=== PATIENT | female | born 1965 | race Caucasian/White ===

== ENCOUNTER 2019-01-04 09:15 | Inpatient (IN) | payer OTHER ==
[~2019-01-04] VITALS: Ht 162.6 cm; Wt 148.3 kg
[2019-01-04] MEDS ORDERED: HYDROCODONE/APAP 7.5MG-325MG 1 EA TAB PO PRN (10:30)
[2019-01-04] MEDS ORDERED: ONDANSETRON HCL INJ 2MG/ML 2ML 2 MG/ML VIAL IV STA (11:33)
[2019-01-04] MEDS ORDERED: MORPHINE SULFATE INJ 4 MG/ML INJ 1ML IV STA (11:33)
[2019-01-04 11:56] LABS: BASOPHILS # (AUTO) 0.1 (0.0-0.1); BASOPHILS % 0.4 % (0.0-1.0); EOSINOPHILS # (AUTO) 0.2 (0.0-0.4); EOSINOPHILS % 1.4 % (0.0-6.0); HEMATOCRIT 40.3 % (34.2-44.1); HEMOGLOBIN 13.2 g/dL (12.0-16.0); LYMPHOCYTES # (AUTO) 3.2 (1.0-3.2); LYMPHOCYTES % 24.2 % (18.0-39.1); MEAN CORPUSCULAR HEMOGLOBIN 27.6 pg (28-32); MEAN CORPUSCULAR HGB CONC 32.8 g/dL (31-35); MEAN CORPUSCULAR VOLUME 84.1 fL (81-99); MONOCYTES # (AUTO) 0.6 (0.2-0.8); MONOCYTES % 4.8 % (4.4-11.3); NEUTROPHILS % 68.5 % (38.7-80.0); PLATELET COUNT 298 x10e3/uL (140-360); RED BLOOD COUNT 4.79 x10e6/uL (3.6-5.1); RED CELL DISTRIBUTION WIDTH 13.7 % (11.7-14.4)
[2019-01-04 12:11] LABS: ANION GAP 17.4 mmol/L (8-16); CALCIUM 10.1 mg/dL (8.4-10.2); CREATININE, SERUM 1.07 mg/dL (0.57-1.11); POTASSIUM 4.4 mmol/L (3.5-5.1)
--- NOTE | 2019-01-04 12:26 | Diagnostic Imaging Report ---
Exam: Left ankle series; 3 views History: Status post fall Comparison: None available Findings: There is diffuse soft tissue swelling. No fracture or dislocation is present. Minimal spurring of the calcaneus at the insertion of the plantar fascia is noted. Impression: Diffuse soft tissue swelling without evidence of a fracture. Signed by: Dr. Juan Mas DO on 01/04/2019 12:23 PM
--- NOTE | 2019-01-04 12:29 | Diagnostic Imaging Report ---
Exam: Left foot series; 3 views History: Status post fall Comparison: Left ankle series same date Findings: There is diffuse soft tissue swelling. No fracture or dislocation is present. Again noted is the spurring of the calcaneus at the insertion of the plantar fascia is noted. Impression: Diffuse soft tissue swelling without evidence of a fracture. Signed by: Dr. Juan Mas DO on 01/04/2019 12:25 PM
--- NOTE | 2019-01-04 12:31 | Diagnostic Imaging Report ---
Exam: Left knee series; 3 views History: Status post fall Comparison: None available Findings: Displaced medial tibial plateau fracture. CT scan may provide additional characterization of the fracture extent. No joint effusion or hemarthrosis. Impression: Displaced medial tibial plateau fracture. Signed by: Dr. Juan Mas DO on 01/04/2019 12:28 PM
[2019-01-04] MEDS ORDERED: SODIUM CHLORIDE FLUSH 10 ML SYR INJ PRN (13:30)
--- OUTSIDE RECORDS SUMMARY | 2019-01-04 13:49 | XMS REPORT ---
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 Allergies, Adverse Reactions, Alerts This patient has no known allergies or adverse reactions. Medications This patient has no known medications. Results Test Description Test Time Test Comments Text Results Atomic Results Result Comments KNEE LEFT THREE VIEWS 2019-01-04 12:26:00 [place] [address] Patient Name: AYAD KERR MR #: [id number] : 1965 Age/Sex: 53/F Req #: [id number] Adm Physician: Ordered by: RASHIDA RODRIGUEZ NATURAL G[employer] PLANT TECHNICIAN Report #: [id number] Location: ER Room/Bed: Procedure: [id number] DX/KNEE LEFT THREE VIEWS Exam Date: 01/04/19 Exam Time: 1017 REPORT STATUS: Signed Exam: Left knee series; 3 views History: Status post fall Comparison: None available Findings: Displaced medial tibial plateau fracture. CT scan may provide additional characterization of the fracture extent. No joint effusion or hemarthrosis. Impression: Displaced medial tibial plateau fracture. Signed by: Dr. Domonique Mas DO on 01/04/2019 12:28 PM Dictated By: DOMONIQUE MAS DO 1228 Transcribed By: TOMMIE on 01/04/198 COPY TO: RASHIDA RODRIGUEZ NATURAL G[employer] PLANT TECHNICIAN FOOT LEFT COMPLETE 2019-01-04 12:24:00 [facility] [address] [place], [place] [address] Patient Name: AYAD KERR MR #: [id number] : 1965 Age/Sex: 53/F Req #: [id number] Adm Physician: Ordered by: RASHIDA RODRIGUEZ NATURAL G[employer] PLANT TECHNICIAN Report #: [id number] Location: ER Room/Bed: Procedure: [id number] DX/FOOT LEFT COMPLETE Exam Date: 01/04/19 Exam Time: 1017 REPORT STATUS: Signed Exam: Left foot series; 3 views History: Status post fall Comparison: Left ankle series same date Findings: There is diffuse soft tissue swelling. No fracture or dislocation is present. Again noted is the spurring of the calcaneus at the insertion of the plantar fascia is noted. Impression: Diffuse soft tissue swelling without evidence of a fracture. Signed by: Dr. Domonique Mas DO on 01/04/2019 12:25 PM Dictated By: DOMONIQUE MAS DO Transcribed By: TOMMIE on 01/04/195 COPY TO: RASHIDA RODRIGUEZ NATURAL GAS PLANT TECHNICIAN ANKLE 3+ VIEWS LEFT 2019-01-04 12:22:[address] [address] Patient Name: AYAD KERR MR #: [id number] : 1965 Age/Sex: 53/F Req #: [id number] Adm Physician: Ordered by: RASHIDA RODRIGUEZ NATURAL G[employer] PLANT TECHNICIAN Report #: [id number] Location: Room/Bed: Procedure: [id number] DX/ANKLE 3+ VIEWS LEFT Exam Date: 01/04/19 Exam Time: 1017 REPORT STATUS: Signed Exam: Left ankle series; 3 views History: Status post fall Comparison: None available Findings: There is diffuse soft tissue swelling. No fracture or dislocation is present. Minimal spurring of the calcaneus at the insertion of the plantar fascia is noted. Impression: Diffuse soft tissue swelling without evidence of a fracture. Signed by: Dr. Domonique Mas DO on 01/04/2019 12:23 PM Dictated By: DOMONIQUE MAS DO 1223 Transcribed By: TOMMIE on 01/04/19 1223 COPY TO: RASHIDA RODRIGUEZ NP
--- NOTE | 2019-01-04 13:51 | Diagnostic Imaging Report ---
CT scan of the LEFT KNEE, WITHOUT injected contrast. TECHNIQUE: Standard departmental protocols were used. Sagittal and coronal reformatted images were obtained. HISTORY: Fall, pain, fracture COMPARISON: Left knee radiographs January 04, 2019. FINDINGS: Bone: Comminuted intra-articular fracture involving both the medial and lateral tibial plateaus. Maximal depression and anterior displacement of fracture fragments is at the anterior aspect of the medial tibial plateau. Maximal depression of the articular surface is approximately 6 mm (sagittal image 40). A 1.4 cm curvilinear avulsion from the fibular head with maximal distraction of 6 mm. Joint: Small nonspecific effusion. Soft Tissues: Moderate nonspecific soft tissue edema. IMPRESSION: 1. Acute, comminuted, intra-articular, impacted fracture involving the medial tibial plateau greater than the lateral tibial plateau. 2. Small acute avulsion from the head of the fibula. Signed by: Dr. Reese Doan D.O., M.M.M. on 01/04/2019 1:47 PM
[2019-01-04] MEDS ORDERED: MORPHINE SULFATE 2 MG/ML SYR 1ML IV PRN (14:00)
[2019-01-04 16:00] VITALS: BP 122/60
[2019-01-04 16:41] VITALS: BP 172/83
[2019-01-04] MEDS ORDERED: LEVOTHYROXINE200 MCG PO (16:42)
[2019-01-04] MEDS ORDERED: PIOGLITAZONE HC45 MG PO (16:42)
[2019-01-04] MEDS ORDERED: CITALOPRAM HBR20 MG PO (16:42)
[2019-01-04] MEDS ORDERED: LISINOPRIL10 MG PO (16:42)
[2019-01-04] MEDS ORDERED: LIOTHYRONINE SO5 MCG PO (16:42)
[2019-01-04] MEDS ORDERED: LOVASTATIN40 MG (16:42)
[2019-01-04] MEDS ORDERED: LANTUS 3ML100 UNITS/ (16:42)
[2019-01-04] MEDS: FAMOTIDINE 20 MG/2 ML VIAL IV SCH (18:02)
[2019-01-04] MEDS: MORPHINE SULFATE INJ 4 MG/ML INJ 1ML IV PRN ×2 (18:46→22:58)
[2019-01-04] MEDS ORDERED: ACETAMINOPHEN 325 MG TAB PO PRN (19:45)
[2019-01-04] MEDS ORDERED: DEXTROSE 50% SYRINGE 50 ML IV PRN (19:45)
[2019-01-04 20:00] VITALS: BP 124/78
[2019-01-04] MEDS ORDERED: FLUCONAZOLE100 MG PO (20:39)
[2019-01-04] MEDS ORDERED: VENTOLIN HFA18 GM (20:39)
[2019-01-04] MEDS ORDERED: GABAPENTIN300 MG PO (20:39)
[2019-01-04 20:51] VITALS: BP 124/78
[2019-01-04] MEDS ORDERED: INSULIN GLARGINE 100 UNITS/ML VIAL SQ SCH (21:00)
[2019-01-04] MEDS: SIMVASTATIN 40 MG TAB PO SCH (21:00)
[2019-01-04] MEDS: ENOXAPARIN SOD INJ 40 MG/0.4 ML SYR SC SCH (21:00)
[2019-01-04] MEDS: INSULIN REGULAR, HUMAN 100 UNIT/1 ML 3ML VIAL SQ SCH (21:00)
[2019-01-04] MEDS: GABAPENTIN 300 MG CAP PO SCH (21:00)
[2019-01-05] VITALS (8 sets, daily range): BP systolic 116–138; BP diastolic 63–94
--- NOTE | 2019-01-05 02:42 | Consultation ---
DATE OF CONSULTATION: 01/04/2019 CHIEF COMPLAINT: Left knee pain. HISTORY OF PRESENT ILLNESS: This patient is a 53-year-old female with a significant history of uncontrolled insulin-dependent diabetes mellitus and morbid obesity. She suffered a fall today. She states that she tripped and fell. She states she had instant pain in the left knee. She states she was unable to get up and bear weight. She was brought into the emergency room, where she was noted to have a left tibial plateau fracture. The patient states that she lives with her twin daughter and son. 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 PAST MEDICAL HISTORY: Insulin-dependent diabetes mellitus, hypertension, hyperthyroidism, diabetic peripheral neuropathy in both feet, and morbid obesity. SOCIAL HISTORY: The patient denies smoking or drinking. ALLERGIES: NO KNOWN DRUG ALLERGIES. MEDICATIONS: See MAR. PHYSICAL EXAMINATION: In general, this is a morbidly obese female with a BMI over 56. She is resting comfortably in bed. She is in no apparent distress. She is awake, alert, and oriented appropriately. Gross inspection of her left lower extremity shows her to be in a knee immobilizer. There is perhaps some swelling around the left knee, but swelling is difficult to assess given her body habitus. I did not attempt range of motion or test stability in the knee. She has diminished sensation in the foot. Pedal pulses palpable. Distal motor exam at the ankle is intact. IMAGING: X-rays of the left knee were obtained and show a type V Schatzker tibial plateau fracture. CT scan was also obtained and shows the same thing with depression in the medial tibial plateau. LABORATORY DATA: Current blood glucose was 379. ASSESSMENT AND PLAN: This is a 53-year-old female with a left tibial plateau fracture. She is morbidly obese with a BMI of 56. She has uncontrolled insulin-dependent diabetes mellitus. Her most recent blood sugar was 379. The findings were discussed with the patient. The severity of the fracture was discussed. The increased difficulty and treating the fracture given her multiple comorbidities including morbid obesity and uncontrolled insulin-dependent diabetes mellitus was discussed at length. We have recommended open reduction and internal fixation of the left proximal tibia. The increased risks for delayed wound healing, and potential infection due to her diabetes and obesity were stressed. I have recommended that she be medically optimized prior to proceeding with the surgery. She likely needs to be placed on an insulin sliding scale and her sugars need to be well controlled. I will place her on Lovenox 40 mg twice a day before thrombo prophylaxis. In the meantime, we will plan on an open reduction internal fixation in the near future, pending medical optimization. Thank you for the consultation. Dictated by Marc Rendon PA-C MD TAYO Wong/FIDELIA /[id number]
[2019-01-05 05:15] LABS: BASOPHILS # (AUTO) 0.1 (0.0-0.1); BASOPHILS % 0.4 % (0.0-1.0); EOSINOPHILS # (AUTO) 0.1 (0.0-0.4); EOSINOPHILS % 0.5 % (0.0-6.0); HEMATOCRIT 37.4 % (34.2-44.1); HEMOGLOBIN 11.7 g/dL (12.0-16.0); LYMPHOCYTES # (AUTO) 1.4 (1.0-3.2); LYMPHOCYTES % 9.7 % (18.0-39.1); MEAN CORPUSCULAR HGB CONC 31.3 g/dL (31-35); MEAN CORPUSCULAR VOLUME 86.2 fL (81-99); MONOCYTES # (AUTO) 1.1 (0.2-0.8); MONOCYTES % 7.6 % (4.4-11.3); NEUTROPHILS # (AUTO) 11.8 (2.1-6.9); NEUTROPHILS % 81.3 % (38.7-80.0); PLATELET COUNT 256 x10e3/uL (140-360); RED BLOOD COUNT 4.34 x10e6/uL (3.6-5.1)
[2019-01-05 05:26] LABS: INR 1.02; PROTHROMBIN TIME 13.9 seconds (11.9-14.5)
[2019-01-05 05:38] LABS: ALBUMIN 3.1 g/dL (3.5-5.0); ALBUMIN/GLOBULIN RATIO 0.8 (0.8-2.0); ANION GAP 12.6 mmol/L (8-16); CALCIUM 9.7 mg/dL (8.4-10.2); CREATININE, SERUM 1.27 mg/dL (0.57-1.11); POTASSIUM 4.6 mmol/L (3.5-5.1)
[2019-01-05] MEDS: MORPHINE SULFATE INJ 4 MG/ML INJ 1ML IV PRN ×4 (05:55→22:40)
[2019-01-05] MEDS: LEVOTHYROXINE SODIUM 100 MCG TAB PO SCH (05:55)
[2019-01-05] MEDS: LIOTHYRONINE SODIUM 5 MCG TAB PO SCH (05:55)
[2019-01-05] MEDS ORDERED: NON-FORMULARY MEDICATION (Levothyroxine Sodium 200 MCG) PO SCH (06:00)
--- NOTE | 2019-01-05 07:05 | NUR ---
Received patient mid fowlers position, side rails upx2, call light within reach. AAOX4 to time, person, place, situation. Respirations even and unlabored. Immobilizer noted to left lower extremity.Will continue to monitor.
[2019-01-05] MEDS ORDERED: KCL 20MEQ/.9 SOD CHL 1,000 ML IV ONE (07:15)
[2019-01-05 07:35] LABS: CHOL/HDL RATIO 3.7 (3.0-3.6)
[2019-01-05 07:56] LABS: FREE THYROXINE INDEX 1.7652 (1.4-3.8); THYROID STIMULATING HORMONE 5.157 uIU/mL (0.350-4.940)
--- NOTE | 2019-01-05 07:58 | History and Physical ---
HISTORY: The patient is a 53-year-old lady, who has fell on the knee, and had sustained a tibial plateau fracture. The patient has been evaluated by Orthopedics and proposed surgery within 2 to 3 days after medical management has been maximized. PAST MEDICAL HISTORY: History of asthma, history of depression, history of uncontrolled diabetes mellitus, history of hypothyroidism, history of hypertension, history of hyperlipidemia, history of morbid obesity, history of obesity hypoventilation syndrome. FAMILY HISTORY: Includes history of hypertension, history of coronary artery disease, history of arthritis and history of alcohol abuse in father and myocardial infarction in father too. SOCIAL HISTORY: No EtOH. No IV drug abuse. ALLERGIES: NO DRUG ALLERGIES NOTED. REVIEW OF SYSTEMS: Negative for chest pain. No shortness of breath at rest, on exertion shortness of breath present. No nausea, vomiting, or diarrhea. No constipation. No rectal bleeding. No hematochezia. No hematemesis. Positive for pain in the left knee after the fall. The patient also had an avulsion of her nail in the right lower extremity. MEDICATIONS: The patient takes levothyroxine, liothyronine, gabapentin 300 mg 3 times a day. She takes insulin glargine 50 units q.12 hours, simvastatin 40 mg, pioglitazone 50 mg a day, lisinopril 40 mg daily, citalopram 40 mg daily. PHYSICAL EXAMINATION: GENERAL: The patient is alert and oriented x3. Pain is controlled with morphine sulfate at this time. VITAL SIGNS: Temperature 97.2, pulse is 110, respirations of 20, blood pressure is 124/76, pulse oximetry of 91% on room air. HEENT: Normocephalic, atraumatic. The patient is morbidly obese. NECK: Large. LUNGS: Decreased air entry into all bobo. Positive for some crackles in lower bases. ABDOMEN: Nontender, nondistended. EXTREMITIES: Left knee in a brace, tender to palpation. Left lower extremity with decreased pulses present and also avulsion of the nail on the right great toe. Positive for hammertoe too. Decreased sensation in lower extremities. NEUROLOGIC: Otherwise, nonfocal. LABORATORY [place]: [place] [address], hemoglobin of 13.2, hematocrit of 40.3, neutrophil count was 9. Chemistry; sodium of 133, potassium 4.4, BUN of 16, and creatinine of 1.07, estimated GFR is 54. The patient's coag's were normal. IMAGING DATA: The patient's knee CT showed acute comminuted intra-articular impacted fracture involving the medial tibial plateau, small acute avulsion at the head of the fibula. The patient's ankle x-rays shows diffuse soft tissue swelling without evidence of fracture. Foot x-ray shows diffuse soft tissue swelling without evidence of fracture either. ASSESSMENT: 1. Tibial plateau fracture. A consult with Dr. Hastings has been done. The patient is scheduled for surgery in 2 to 3 days after medical management has been optimized. 2. Diabetes mellitus, uncontrolled. The patient will get a hemoglobin A1c today. Also cardiac consult for cardiac clearance. Echocardiogram will be ordered and also lipid panel will be ordered. 3. Hyperlipidemia. Continue with antihyperlipidemic agents. 4. Morbid obesity. She will probably need O2 and BiPAP after surgery. We will continue to monitor the patient. Lovenox for DVT prophylaxis has been instituted and CBC, CMP will be followed on a regular basis. Further recommendation and clinical course, we will continue to monitor the patient. Possible planning for surgery on Tuesday and we will keep the patient in-house until medical therapy has been optimized. Insulin sliding scale medium dose has been instituted for diabetes mellitus. For further information, look in the chart and the patient will also have a consult with Dr. Park, Cardiology. MD ZAY Bennett/MODL /[id number]
[2019-01-05] MEDS ORDERED: LISINOPRIL 10 MG TAB PO SCH (09:00)
[2019-01-05] MEDS ORDERED: PIOGLITAZONE HCL 45 MG TAB PO SCH (09:00)
[2019-01-05] MEDS ORDERED: LIOTHYRONINE SODIUM 5 MCG TAB PO SCH (09:00)
[2019-01-05] MEDS ORDERED: NON-FORMULARY MEDICATION (Insulin Glargine (Lantus 3ML Pen) 50 UNITS) SQ SCH (09:00)
[2019-01-05] MEDS ORDERED: SIMVASTATIN 20 MG TAB PO SCH (09:00)
[2019-01-05] MEDS: PIOGLITAZONE HCL 15 MG TAB PO SCH (09:44)
[2019-01-05] MEDS: FAMOTIDINE 20 MG/2 ML VIAL IV SCH ×2 (09:44→17:15)
[2019-01-05] MEDS: LISINOPRIL 20 MG TAB PO SCH (09:44)
[2019-01-05] MEDS: CITALOPRAM HYDROBROMIDE 20 MG TAB PO SCH (09:44)
[2019-01-05] MEDS: ENOXAPARIN SOD INJ 40 MG/0.4 ML SYR SC SCH ×2 (09:45→21:11)
[2019-01-05] MEDS: INSULIN GLARGINE 100 UNITS/ML VIAL SQ SCH ×2 (09:45→21:11)
[2019-01-05] MEDS: INSULIN REGULAR, HUMAN 100 UNIT/1 ML 3ML VIAL SQ SCH ×4 (09:46→21:00)
--- NOTE | 2019-01-05 15:25 | Consultation ---
DATE OF CONSULTATION: CHIEF COMPLAINT: The patient is a 53-year-old with tibial plateau fracture. HISTORY OF PRESENT ILLNESS: The patient is a 53-year-old, who sustained a left tibial plateau fracture after slipping and falling. Cardiology consultation has been requested for clearance. The patient has had no chest pain, no shortness of breath, and no syncope. PAST MEDICAL HISTORY: Significant for: 1. Diabetes mellitus. 2. Hypertension. 3. Hyperlipidemia. MEDICATIONS: At home, include Synthroid, gabapentin, insulin, simvastatin, and lisinopril. SOCIAL HISTORY: The patient does not drink or does not smoke. FAMILY HISTORY: There is no known family history of coronary artery disease. PHYSICAL EXAMINATION: GENERAL: The patient is a well-developed, well-nourished female in no distress. VITAL SIGNS: Included temperature 97.2, pulse was 106, and blood pressure was 116/80. HEAD, EYES, EARS, NOSE, THROAT, AND NOSE: The patient's cranium was normocephalic and atraumatic. Extraocular muscles were intact. Sclerae are anicteric. Pupils are equal, round, and reactive to light. CHEST: Clear to auscultation and percussion. CARDIOVASCULAR: Demonstrated normal S1, S2 with a short 2/6 systolic murmur. ABDOMINAL: Demonstrated good bowel sounds. No tenderness and no masses. EXTREMITIES: 1+ edema bilaterally. NEUROLOGIC: The patient was alert and oriented. Cranial nerves II through XII are intact. Motor strength was intact in all limbs. RADIOGRAPHIC DATA: The patient's EKG demonstrated normal sinus rhythm with some nonspecific ST-T wave changes. IMPRESSION AND PLAN: The patient is a 53-year-old with a history of hypertension. The patient's cardiac status is stable with no shortness of breath and no chest pain. The patient is cleared for surgery from a cardiac standpoint. Gt Park MD DSH/MODL /[id number] cc: MD Gt Bennett MD
--- NOTE | 2019-01-05 19:10 | NUR ---
Bedside report given to oncoming nurse. Resting in bed, side rails upx2, call light within reach. No s/s of acute distress noted.
--- NOTE | 2019-01-05 19:26 | NUR ---
Patient received asleep in bed. Arousable to tactile stimuli. No signs of pain or respiratory distress noted. Fall precautions implemented. Call light within reach.
[2019-01-05] MEDS: SIMVASTATIN 40 MG TAB PO SCH (21:11)
[2019-01-05] MEDS: GABAPENTIN 300 MG CAP PO SCH (21:11)
[2019-01-06] VITALS (8 sets, daily range): BP systolic 110–142; BP diastolic 62–91
[2019-01-06] MEDS: LEVOTHYROXINE SODIUM 100 MCG TAB PO SCH (05:28)
[2019-01-06] MEDS: LIOTHYRONINE SODIUM 5 MCG TAB PO SCH (05:28)
[2019-01-06 05:42] LABS: BASOPHILS # (AUTO) 0.1 (0.0-0.1); BASOPHILS % 0.3 % (0.0-1.0); EOSINOPHILS # (AUTO) 0.1 (0.0-0.4); EOSINOPHILS % 0.4 % (0.0-6.0); HEMATOCRIT 36.6 % (34.2-44.1); HEMOGLOBIN 11.9 g/dL (12.0-16.0); LYMPHOCYTES # (AUTO) 1.6 (1.0-3.2); LYMPHOCYTES % 8.2 % (18.0-39.1); MEAN CORPUSCULAR HGB CONC 32.5 g/dL (31-35); MEAN CORPUSCULAR VOLUME 86.1 fL (81-99); MONOCYTES # (AUTO) 1.8 (0.2-0.8); MONOCYTES % 9.3 % (4.4-11.3); NEUTROPHILS # (AUTO) 15.5 (2.1-6.9); PLATELET COUNT 238 x10e3/uL (140-360); RED BLOOD COUNT 4.25 x10e6/uL (3.6-5.1)
[2019-01-06 05:52] LABS: ANION GAP 14.5 mmol/L (8-16); CALCIUM 10.2 mg/dL (8.4-10.2); CREATININE, SERUM 1.25 mg/dL (0.57-1.11); POTASSIUM 4.5 mmol/L (3.5-5.1)
--- NOTE | 2019-01-06 07:00 | NUR ---
Patient resting comfortably. Shift report given to oncoming nurse.
--- NOTE | 2019-01-06 07:05 | NUR ---
pt asleep resp even and unlabored at this time, pt easily aroused, pt able to make needs known, call light in reach will cont to monitor.
[2019-01-06] MEDS: INSULIN REGULAR, HUMAN 100 UNIT/1 ML 3ML VIAL SQ SCH ×4 (07:30→21:00)
[2019-01-06] MEDS: INSULIN GLARGINE 100 UNITS/ML VIAL SQ SCH ×2 (09:00→21:00)
[2019-01-06] MEDS: ENOXAPARIN SOD INJ 40 MG/0.4 ML SYR SC SCH ×2 (09:02→21:25)
[2019-01-06] MEDS: PIOGLITAZONE HCL 15 MG TAB PO SCH (09:02)
[2019-01-06] MEDS: FAMOTIDINE 20 MG/2 ML VIAL IV SCH ×2 (09:02→16:27)
[2019-01-06] MEDS: CITALOPRAM HYDROBROMIDE 20 MG TAB PO SCH (09:02)
[2019-01-06] MEDS: LISINOPRIL 20 MG TAB PO SCH (09:03)
[2019-01-06] MEDS: HYDROCODONE/APAP 7.5MG-325MG 1 EA TAB PO PRN ×2 (09:51→16:45)
--- NOTE | 2019-01-06 12:20 | NUR ---
pt worked with PT.
--- NOTE | 2019-01-06 13:50 | NUR ---
PT worked with pt
[2019-01-06] MEDS: MORPHINE SULFATE INJ 4 MG/ML INJ 1ML IV PRN (18:07)
--- NOTE | 2019-01-06 19:28 | NUR ---
report given to oncoming nurse, for continued care.
--- NOTE | 2019-01-06 19:32 | NUR ---
Patient asleep in bed in high hauser position. Arousable to tactile stimuli. No signs of pain or discomfort. Respirations even and non-labored. Bed locked and in lowest position. Bed rails up x 2. Call light within reach.
[2019-01-06] MEDS: SIMVASTATIN 40 MG TAB PO SCH (21:25)
[2019-01-06] MEDS: GABAPENTIN 300 MG CAP PO SCH (21:25)
[2019-01-07] VITALS (7 sets, daily range): BP systolic 121–164; BP diastolic 65–86
[2019-01-07] MEDS: MORPHINE SULFATE INJ 4 MG/ML INJ 1ML IV PRN ×2 (05:37→23:09)
[2019-01-07] MEDS: LIOTHYRONINE SODIUM 5 MCG TAB PO SCH (06:40)
[2019-01-07] MEDS: LEVOTHYROXINE SODIUM 100 MCG TAB PO SCH (06:40)
--- NOTE | 2019-01-07 07:11 | NUR ---
pt asleep upon rounds resp even and unlabored at this time,pt has no distress noted, pt aroused to name and touch, call light in reach,
--- NOTE | 2019-01-07 07:23 | NUR ---
Walking rounds done. Shift report given to oncoming nurse about patient status.
[2019-01-07] MEDS: INSULIN REGULAR, HUMAN 100 UNIT/1 ML 3ML VIAL SQ SCH ×4 (07:30→21:00)
[2019-01-07] MEDS: INSULIN GLARGINE 100 UNITS/ML VIAL SQ SCH ×2 (09:00→21:00)
[2019-01-07] MEDS: CITALOPRAM HYDROBROMIDE 20 MG TAB PO SCH (09:33)
[2019-01-07] MEDS: FAMOTIDINE 20 MG/2 ML VIAL IV SCH ×2 (09:33→16:43)
[2019-01-07] MEDS: ENOXAPARIN SOD INJ 40 MG/0.4 ML SYR SC SCH ×2 (09:33→21:10)
[2019-01-07] MEDS: PIOGLITAZONE HCL 15 MG TAB PO SCH (09:33)
[2019-01-07] MEDS: LISINOPRIL 20 MG TAB PO SCH (09:34)
--- NOTE | 2019-01-07 19:22 | NUR ---
Patient received awake in bed. AAO x 3. No complaints of pain. Respirations even and non-labored. Call light within reach.
[2019-01-07] MEDS: SIMVASTATIN 40 MG TAB PO SCH (21:10)
[2019-01-07] MEDS: GABAPENTIN 300 MG CAP PO SCH (21:10)
--- NOTE | 2019-01-07 22:55 | NUR ---
Patient given a bed bath . Redness and tear noted to right sacrum . Allevyn foam applied. Patient repositioned into a more comfortable position.
[2019-01-08] VITALS (8 sets, daily range): BP systolic 120–164; BP diastolic 60–94
--- NOTE | 2019-01-08 00:54 | NUR ---
Ziyad Jon called at . bariatric bed with air mattress ordered. spoke with nader and confirmation #[id number].
--- NOTE | 2019-01-08 03:30 | NUR ---
Patient transferred onto "Specialty" bed" with low air mattress.
[2019-01-08] MEDS: HYDROCODONE/APAP 7.5MG-325MG 1 EA TAB PO PRN ×3 (04:04→19:27)
[2019-01-08] MEDS: LIOTHYRONINE SODIUM 5 MCG TAB PO SCH (05:21)
[2019-01-08] MEDS: LEVOTHYROXINE SODIUM 100 MCG TAB PO SCH (05:21)
--- NOTE | 2019-01-08 06:40 | NUR ---
Shift report given to oncoming nurse.
--- NOTE | 2019-01-08 07:03 | NUR ---
pt alert resp even and unlabored at this time no distress, noted pt in ordered big bed, no distress noted, no c/o pain at this time. call light in reach.
[2019-01-08] MEDS: LISINOPRIL 20 MG TAB PO SCH (08:35)
[2019-01-08] MEDS: FAMOTIDINE 20 MG/2 ML VIAL IV SCH ×2 (08:35→17:01)
[2019-01-08] MEDS: CITALOPRAM HYDROBROMIDE 20 MG TAB PO SCH (08:35)
[2019-01-08] MEDS: PIOGLITAZONE HCL 15 MG TAB PO SCH (08:35)
[2019-01-08] MEDS: ENOXAPARIN SOD INJ 40 MG/0.4 ML SYR SC SCH (08:35)
[2019-01-08] MEDS: INSULIN GLARGINE 100 UNITS/ML VIAL SQ SCH ×2 (09:00→21:30)
[2019-01-08] MEDS: INSULIN REGULAR, HUMAN 100 UNIT/1 ML 3ML VIAL SQ SCH ×4 (09:18→21:30)
[2019-01-08] MEDS ORDERED: CEFAZOLIN SOD 2 GM in SODIUM CHLORIDE 0.9% 100 ML 100 ML IV SCH (11:00)
[2019-01-08] MEDS: CEFAZOLIN SOD 2 GM/D5W 50ML 50 ML IV SCH ×2 (12:00→21:30)
--- NOTE | 2019-01-08 12:03 | NUR ---
pt worked with PT, tolerated well.
[2019-01-08] MEDS ORDERED: SODIUM CHLORIDE 0.9% 250ML 250 ML ONE (15:40)
[2019-01-08] MEDS: MORPHINE SULFATE INJ 4 MG/ML INJ 1ML IV PRN (16:47)
--- NOTE | 2019-01-08 18:00 | NUR ---
pt signed consent for procedure .
--- NOTE | 2019-01-08 19:28 | NUR ---
report given to oncoming nurse, for continued care.
[2019-01-08] MEDS: SIMVASTATIN 40 MG TAB PO SCH (21:30)
[2019-01-08] MEDS: GABAPENTIN 300 MG CAP PO SCH (21:30)
[2019-01-09] VITALS (9 sets, daily range): BP systolic 114–158; BP diastolic 66–87
[2019-01-09] MEDS: HYDROCODONE/APAP 7.5MG-325MG 1 EA TAB PO PRN (00:14)
--- NOTE | 2019-01-09 04:00 | NUR ---
UPON MAKING BEDSIDE ROUNDS, PATIENT IS RELAXING EYES CLOSED, NO DISTRESS NOTED, GIVEN 0400 ANTIBIOTIC. PATIENT STATES THAT HER PAIN IS TOLERABLE AND CAN REST MORE COMFORTABLE, BED IN LOW POSITION, CALL LIGHT WITHIN REACH, WILL CONTINUE TO MONITOR.
[2019-01-09] MEDS: CEFAZOLIN SOD 2 GM/D5W 50ML 50 ML IV SCH (04:04)
[2019-01-09] MEDS: LIOTHYRONINE SODIUM 5 MCG TAB PO SCH (05:47)
[2019-01-09] MEDS: LEVOTHYROXINE SODIUM 100 MCG TAB PO SCH (05:47)
[2019-01-09] MEDS ORDERED: METOPROLOL TARTRATE INJ 1 MG/ML VIAL IV ONE (06:45)
--- NOTE | 2019-01-09 07:23 | NUR ---
REPORT GIVEN TO ONGOING NURSE. PATIENT IS RESTING COMFORTABLY
[2019-01-09] MEDS: INSULIN REGULAR, HUMAN 100 UNIT/1 ML 3ML VIAL SQ SCH ×4 (07:30→20:12)
--- NOTE | 2019-01-09 07:46 | Progress Note ---
DATE: SUBJECTIVE: This is a 53-year-old female with the tibial fracture site scheduled for surgery today. The patient is currently asymptomatic. Does complain of shortness of breath, which is baseline for her. The patient is currently on an insulin schedule and Lovenox has been on hold. The patient is on her blood pressure medicine, lisinopril, and also on morphine for pain control. OBJECTIVE: VITAL SIGNS: Temperature is 96.7, pulse of 94, respirations of 20, blood pressure is 137/72, and pulse oximeter of 93%. HEENT: Normocephalic, atraumatic. Pupils are reactive to light and accommodation. The patient is morbidly obese with a BMI of 50 plus. CVS: S1-S2 distant and slightly tachycardic. ABDOMEN: Nontender, nondistended. EXTREMITIES: No clubbing. No cyanosis. Positive for edema. Positive for tenderness in the knee and also positive for hammertoes bilaterally. LABORATORY VALUES: From , we have white count of 19,000, hemoglobin of 11.9, neutrophil count is 81. Coags were normal. Chemistries show sodium of 135 to 181. ASSESSMENT: 1. Left knee tibial plateau fracture. The patient is on-call for surgery today. 2. Morbid obesity. The patient is high risk for surgery. 3. Hypertension with possible sleep apnea. 4. Hypoxia, might need ICU admission after surgery. We will continue to monitor the patient. Ortho is on consult and also cardiology consult is on board. PLAN: Schedule for surgery today. We will go ahead and give her metoprolol 2.5 mg IV to control her heart rate and also check a CBC prior to surgery with a history of leukocytosis. MD ZAY Bennett/MODL /[id number]
[2019-01-09 07:58] LABS: BASOPHILS # (AUTO) 0.1 (0.0-0.1); BASOPHILS % 0.4 % (0.0-1.0); EOSINOPHILS # (AUTO) 0.3 (0.0-0.4); EOSINOPHILS % 2.6 % (0.0-6.0); HEMATOCRIT 32.8 % (34.2-44.1); HEMOGLOBIN 10.6 g/dL (12.0-16.0); LYMPHOCYTES # (AUTO) 2.2 (1.0-3.2); LYMPHOCYTES % 17.9 % (18.0-39.1); MEAN CORPUSCULAR HEMOGLOBIN 27.4 pg (28-32); MEAN CORPUSCULAR HGB CONC 32.3 g/dL (31-35); MEAN CORPUSCULAR VOLUME 84.8 fL (81-99); MONOCYTES # (AUTO) 1.2 (0.2-0.8); MONOCYTES % 10.2 % (4.4-11.3); NEUTROPHILS # (AUTO) 8.2 (2.1-6.9); NEUTROPHILS % 68.3 % (38.7-80.0); PLATELET COUNT 303 x10e3/uL (140-360); RED BLOOD COUNT 3.87 x10e6/uL (3.6-5.1); RED CELL DISTRIBUTION WIDTH 14.3 % (11.7-14.4)
[2019-01-09] MEDS: FAMOTIDINE 20 MG/2 ML VIAL IV SCH ×2 (08:50→18:31)
[2019-01-09 08:51] LABS: ANION GAP 12.7 mmol/L (8-16); BLOOD UREA NITROGEN 21 mg/dL (7-26); BUN/CREATININE RATIO 25 (6-25); CALCIUM 9.8 mg/dL (8.4-10.2); CARBON DIOXIDE 26 mmol/L (22-29); CHLORIDE 100 mmol/L (98-107); CREATININE, SERUM 0.83 mg/dL (0.57-1.11); EST GLOMERULAR FILTRATION RATE > 60 ML/MIN (60-); GLUCOSE 78 mg/dL (74-118); POTASSIUM 3.7 mmol/L (3.5-5.1); SODIUM 135 mmol/L (136-145)
[2019-01-09] MEDS: PIOGLITAZONE HCL 15 MG TAB PO SCH (08:51)
[2019-01-09] MEDS: CITALOPRAM HYDROBROMIDE 20 MG TAB PO SCH (08:51)
[2019-01-09] MEDS: INSULIN GLARGINE 100 UNITS/ML VIAL SQ SCH ×2 (08:52→20:12)
[2019-01-09] MEDS: LISINOPRIL 20 MG TAB PO SCH (08:52)
[2019-01-09] MEDS ORDERED: CEFAZOLIN SOD 1 GM VIAL IV SCH (10:00)
[2019-01-09] MEDS ORDERED: MIDAZOLAM HCL 2 MG/2 ML VIAL ONE (13:32)
[2019-01-09] MEDS ORDERED: FENTANYL CITRATE/PF 100MCG/2 ML INJ ONE ×3 (13:32→15:16)
[2019-01-09] MEDS ORDERED: ROPIVACAINE 246.25 MG, EPINEPHRINE HCL 1:1000 1ML 0.5 MG, CLONIDINE HCL 0.08 MG, KETORO... INJ ONE ×5 (13:45)
[2019-01-09] MEDS ORDERED: ONDANSETRON HCL INJ 2MG/ML 2ML 2 MG/ML VIAL IV PRN (14:45)
[2019-01-09] MEDS ORDERED: PROMETHAZINE HCL (IM) 25 MG/ML VIAL INJ PRN (14:45)
[2019-01-09] MEDS ORDERED: DOCUSATE SODIUM 100 MG CAP PO PRN (14:45)
[2019-01-09] MEDS ORDERED: KETOROLAC TROMETHAMINE 30 MG/ML VIAL IV PRN (14:45)
[2019-01-09] MEDS ORDERED: ACETAMINOPHEN 650 MG SUPP PR PRN (14:45)
[2019-01-09] MEDS ORDERED: HYDROCODONE/APAP 5MG-325MG TAB PO PRN (14:45)
[2019-01-09] MEDS ORDERED: DIPHENHYDRAMINE HCL INJ 50 MG/ML VIAL IM/IV PRN (14:45)
[2019-01-09] MEDS ORDERED: HYDROCODONE/APAP 7.5MG-325MG 1 EA TAB PO PRN (14:45)
[2019-01-09] MEDS ORDERED: METOCLOPRAMIDE HCL 10 MG/2ML VIAL ONE (15:17)
[2019-01-09] MEDS ORDERED: MORPHINE SULFATE INJ 4 MG/ML INJ 1ML ONE ×2 (15:31→15:53)
[2019-01-09] MEDS ORDERED: ACETAMINOPHEN 1000 MG/100 ML 100 ML IV ONE (15:32)
--- NOTE | 2019-01-09 15:43 | NUR ---
WOUND CARE CONSULTATION - INTIAL EVALUATION PENDING Patent admitted for Left Tibial Plateau Fracture. Patient currently in OR and out of room. Unable to perform assessment. Will follow up tomorrow for consultation of sacral redness with alvaroister. Thank you for consulting with Wound Care. Will follow up tomorrow morning. Addendum: 01/09/19 at 1545 by Rafiq Shields RN Amended: Links added.
[2019-01-09] MEDS ORDERED: KETOROLAC TROMETHAMINE 30 MG/ML VIAL ONE (15:45)
[2019-01-09] MEDS ORDERED: HYDROMORPHONE 2MG/ML 2 MG/ML ML ONE ×2 (15:54→16:14)
--- NOTE | 2019-01-09 16:10 | NUR ---
CM SPOKE TO PATIENT AND PATIENT FAMILY REGARDING HOME HEALTH ORDER. PATIENT BACK FROM SURGERY AND UNABLE TO MAKE SOUND DECISION. CM TO RETURN IN AM TO SPEAK TO PATIENT REGARDING NEXT LEVEL OF CARE. PATIENT CURRENTLY UNABE TO WALK DUE TO PAIN. ONLY AMBULATING 15 FT. PATIENT YOUNG AND INDEPENDENT PRIOR TO ADMISSION SO INPATIENT REHAB MAY BE MORE APPROPRIATE TO RETURN TO BASELINE. CM TO FOLLOW UP.
[2019-01-09] MEDS ORDERED: ROCURONIUM BROMIDE 10 MG/ML 5ML VIAL ONE (17:11)
[2019-01-09] MEDS ORDERED: LIDOCAINE HCL 2% LOCAL INJ 5 ML SDV VIAL INJ ONE (17:11)
[2019-01-09] MEDS ORDERED: ONDANSETRON HCL INJ 2MG/ML 2ML 2 MG/ML VIAL ONE (17:11)
[2019-01-09] MEDS ORDERED: SEVOFLURANE INHAL SOLN 250 ML PEN BTL ONE (17:11)
[2019-01-09] MEDS ORDERED: DEXAMETHASONE SOD PHOS INJ 4 MG/ML VIAL ONE (17:11)
[2019-01-09] MEDS ORDERED: NEOSTIGMINE 5 MG/5ML SYR ONE (17:11)
[2019-01-09] MEDS ORDERED: PHENYLEPHRINE HCL 1% 10 MG/ML VIAL ONE (17:11)
[2019-01-09] MEDS ORDERED: PROPOFOL IV EMULSION 10 MG/ML 20 ML VIAL ONE (17:11)
[2019-01-09] MEDS ORDERED: GLYCOPYRROLATE INJ 1MG/ 5 ML SYR ONE (17:11)
[2019-01-09] MEDS: SODIUM CHLORIDE 0.9% 1000ML 1,000 ML IV SCH ×2 (17:49→23:57)
[2019-01-09] MEDS: CELECOXIB 100 MG CAP PO SCH (18:31)
[2019-01-09] MEDS: ACETAMINOPHEN 1000 MG/100 ML IV SCH ×2 (18:31→23:57)
--- NOTE | 2019-01-09 19:32 | NUR ---
report given to oncoming nurse, for continued care,
[2019-01-09] MEDS: GABAPENTIN 300 MG CAP PO SCH (20:30)
[2019-01-09] MEDS: SIMVASTATIN 40 MG TAB PO SCH (20:30)
[2019-01-09] MEDS ORDERED: ZOLPIDEM TARTRATE 5 MG TAB PO PRN (21:00)
[2019-01-09] MEDS: CEFAZOLIN SOD 1 GM/NS 50ML 50 ML IV SCH (21:17)
--- NOTE | 2019-01-10 00:31 | Operative Report ---
DATE OF PROCEDURE: 01/09/2019 SURGEON: Gt Hastings MD BESSEMER CONVERTER OPERATOR: Marc Rendon, Certified PA. PREOPERATIVE DIAGNOSIS: Left bicondylar tibial plateau fracture. POSTOPERATIVE DIAGNOSIS: Left bicondylar tibial plateau fracture. PROCEDURE: Open reduction and internal fixation, left bicondylar tibial plateau fracture, asterixis added complexity secondary to BMI over 56. INDICATIONS: The patient is a 53-year-old lady, who has numerous severe medical issues. She has a BMI of 56. She has uncontrolled diabetes and hypertension. She tripped and fell and sustained a bicondylar left tibial plateau fracture. The findings and options have been discussed. The patient was admitted because she could not possibly take care of herself at home. She has demonstrated limited ability to get up and transfer to a wheelchair with physical therapy over the past few days. The options have been discussed. The high risk for perioperative complications including mortality have been explained to the patient. The possibility of future hardware and fracture fixation failure has been explicitly discussed. The patient states she understands, but wishes for us to try to fix the tibial plateau fracture. DESCRIPTION OF PROCEDURE: The patient was brought to the operating room and placed under general anesthetic. Added time and personnel were needed to position the patient. A tourniquet was carefully placed on the left upper thigh. The left lower extremity was prepped and draped in a sterile manner. A preoperative time-out was performed. The extremity was exsanguinated as best as possible, and the proximal tourniquet was inflated to 350 mmHg. An extensile incision was made over the anterior aspect of the proximal left leg. Abundant subcutaneous adipose tissue was encountered. The proximal tibia was carefully exposed. I made a point to not strip any periosteum off the proximal tibia. A C-arm image intensifier and reduction clamps were used to reduce the fracture. There was a large markedly displaced anterior medial tibial plateau component. I elected to place a medial buttress plate. The standard medial buttress plates are too thin and flimsy for someone with a BMI of 56. I elected to reverse a right-sided lateral plate, which is much more steady in its construction. This was placed onto the proximal tibia, while reduction was maintained. Intraoperative x-rays confirmed satisfactory positioning of the hardware and reduction of the fracture. A secondary lateral periarticular plate was placed. Both of these plates were fixed with a combination of compression and locking screws. Intraoperative x-rays confirmed satisfactory reduction and positioning of all the hardware. The wounds were thoroughly irrigated. The deep fascia was reapproximated with 0 Vicryl. The skin was closed with subcuticular Vicryl and christiana. A sterile wound VAC was applied. She was placed back into a knee immobilizer. She was extubated and transported to the recovery room in stable condition. Blood loss was approximately 50 mL. At the end of the procedure, all needle and sponge counts were correct. Gt Hastings MD DR/FIDEILA /[id number]
[2019-01-10 05:17] VITALS: BP 126/70
[2019-01-10 05:22] LABS: HEMATOCRIT 33.3 % (34.2-44.1); HEMOGLOBIN 10.3 g/dL (12.0-16.0)
[2019-01-10] MEDS: ACETAMINOPHEN 1000 MG/100 ML IV SCH ×2 (05:43→11:39)
[2019-01-10] MEDS: CEFAZOLIN SOD 1 GM/NS 50ML 50 ML IV SCH ×2 (05:43→14:17)
[2019-01-10] MEDS: LIOTHYRONINE SODIUM 5 MCG TAB PO SCH (05:44)
[2019-01-10] MEDS: LEVOTHYROXINE SODIUM 100 MCG TAB PO SCH (05:44)
--- NOTE | 2019-01-10 08:32 | Progress Note ---
DATE: SUBJECTIVE: The patient is status post open reduction and internal fixation of the left lower extremity. The patient is currently complaining of some shortness of breath, pulse ox has been low. The patient has been encouraged to use incentive spirometer. Medications have been reviewed. OBJECTIVE: VITAL SIGNS: Temperature is 96.1, pulse of 90, respirations of 18, blood pressure is 126/70. HEENT: Normocephalic, atraumatic. LUNGS: Decreased air entry into all lung bobo. ABDOMEN: Nontender, nondistended. EXTREMITIES: Left lower extremity wound clean, dry. LABORATORY DATA: The patient's white count is 12,000 yesterday, hemoglobin 10.3, hematocrit of 33.3 today. Chemistries have been normal. Potassium 3.7, sodium was 135. ASSESSMENT: 1. Left bicondylar tibial plateau fracture, status post open reduction and internal fixation. 2. Morbid obesity. 3. Hypertension with sleep apnea. 4. Hypoxia. PLAN: The patient will need continuous incentive spirometer. CBC, hemoglobin to be monitored continuously. Physical therapy as per Ortho. Further recommendation per clinical course. The patient again is encouraged to use incentive spirometer and O2 at all times. MD ZAY Bennett/MODL /[id number]
[2019-01-10 08:48] VITALS: BP 116/70
[2019-01-10] MEDS: INSULIN GLARGINE 100 UNITS/ML VIAL SQ SCH ×2 (08:48→22:51)
[2019-01-10] MEDS: FAMOTIDINE 20 MG/2 ML VIAL IV SCH (08:48)
[2019-01-10] MEDS: INSULIN REGULAR, HUMAN 100 UNIT/1 ML 3ML VIAL SQ SCH ×4 (08:48→22:50)
[2019-01-10] MEDS: PIOGLITAZONE HCL 15 MG TAB PO SCH (08:49)
[2019-01-10] MEDS: CITALOPRAM HYDROBROMIDE 20 MG TAB PO SCH (08:49)
[2019-01-10] MEDS: CELECOXIB 100 MG CAP PO SCH ×2 (08:49→17:10)
[2019-01-10 08:53] VITALS: BP 116/70
[2019-01-10] MEDS: LISINOPRIL 20 MG TAB PO SCH (08:53)
[2019-01-10] MEDS: HYDROCODONE/APAP 7.5MG-325MG 1 EA TAB PO PRN (10:07)
[2019-01-10] MEDS: MORPHINE SULFATE INJ 4 MG/ML INJ 1ML IV PRN ×2 (11:16→21:42)
[2019-01-10] MEDS: SODIUM CHLORIDE 0.9% 1000ML 1,000 ML IV SCH (11:21)
[2019-01-10 12:22] VITALS: BP 105/60
--- NOTE | 2019-01-10 14:28 | NUR ---
Nutrition Screen Note RD Recommendation for Physician: -Continue ADA/ cardiac diet as ordered Plan of Care: RD following, monitoring for tolerance and adequacy Nutrition reason for involvement: LOS Primary Diagnose(s): Left bicondylar tibial plateau fracture, status post open reduction and internal fixation. PMH: asthma, depression, DM, hypothyroidism, HTN, HLD, morbid obesity Ht: 64in Wt: 327lb BMI: 56.1kg/m2 IBW: 120lb RD Assessment: (01/10) Chart reviewed. Labs and meds reviewed. 53yo F, who was admitted for Left Tibial Plateau Fracture. S/p open reduction and internal fixation of the left lower extremity. POD 1. Visited pt in the room. Pt reported good appetite with 100% observed lunch intake. No complains of nausea or vomiting. Pt reported constipation with no BM since admission; notified LOLIS Donnelly. Pt denied any chewing or swallowing difficultly. 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 Will continue to monitor and follow. Current Diet: ADA/ cardiac Malnutrition Evaluation (01/10) The patient does not meet criteria for a specified degree of malnutrition at this time. Will re-evaluate at follow-up as appropriate. Diet Education Needs Assessment: Diet education not indicated. Nutrition Care Level: low Signed: Beatriz Capellan, MS, RD, LD
[2019-01-10] MEDS ORDERED: ACETAMINOPHEN 1000 MG/100 ML IV PRN (14:45)
--- NOTE | 2019-01-10 15:22 | NUR ---
CM SPOKE TO PATIENT AT BEDSIDE REGARDING INPATIENT REHAB ORDER PLACED BY DR. DENNIS. PATIENT AWARE AND AGREED TO INPATIENT REHAB. PATIENT GIVEN CHOICES FOR INPATIENT REHAB FACILITIES. PATIENT CHOSE [facility]. CHOICE SIGNED AND PLACED IN CHART. [facility] LIAISON- [place] NOTIFIED AND CLINICAL FAXED. PENDING INSURANCE AUTH FOR TRANSFER. [facility] Address: [address] [place] [address], [place] [address] FAX: [phone] MOT INITIATED AND GIVEN TO SOPHIE, COPY CHIEF.
[2019-01-10 15:41] VITALS: BP 119/60
[2019-01-10] MEDS ORDERED: ONDANSETRON HCL 4 MG ORAL DISINTEGRATING TAB PO PRN (16:45)
--- NOTE | 2019-01-10 16:46 | NUR ---
WOUND CARE CONSULTATION- INITIAL EVALUATION Patient admitted from home to ER for left tibial plateau fracture. Patient underwent SX intervention on 01/09/2019. Area Dressed, CDI with ALEX 7 vacuum assisted closure device. HX: Morbid obesity, HTN, Hypoxia. WBC12.01 HGB10.6 HCT32.8 NEUT68.3 GLU78 WC Consulted for sacral redness with blister. PATIENT VISIT: Patient calm and cooperative, in bed AAOX3. Patient able to turn self to left side without assistance. Rocael score 16 NWB Left Leg OOB to [facility] with Sliding Board Transfer. Walker at bedside Sacral area intact. no redness, no swelling, non tender Left Gluteal - presents with oval ulceration 1x1x0.2cm, open and draining scant serosanguineous fluid. Tender to touch. No bony areas present at area. Likely due to shear friction and pressure forces. Documentation supports presence of blister at some point. Blister now open. LLE presents with Gurvinder Bandage and Splint in place. PICO7 noted toward incision site. Unable to assess. Surgical dressing still in place. IMPRESSION: 1.Left Gluteal - Stage II - Pressure Ulcer. RECOMMENDATION: 1.Left Gluteal - Stage II - Pressure Ulcer - Wash area with mild soap and NS - Apply Gracie cream q12h and cover with Allevyn Foam Dressing. 2. Continue INGA Alternating Pressure Air Mattress 3. Encourage Turning and Repositioning every 2 hrs. 4. Encourage OOB activity 5. Offload Heels with Pillows while in bed/ Bilateral Heel Protectors while in bed. 6. Shear Friction Precautions. 7. Continue Moderate PUP Protocol Thank you for consulting with Wound Care. Addendum: 01/10/19 at 1655 by Rafiq Shields RN Amended: Links added.
[2019-01-10] MEDS ORDERED: RIVAROXABAN 10 MG TABLET PO SCH (17:00)
[2019-01-10] MEDS: FAMOTIDINE 20 MG TAB PO SCH (17:09)
--- NOTE | 2019-01-10 19:05 | NUR ---
Patient visited in room during nursing rounds. Patient alert and oriented x3. Left leg on surgical dressing and wrapped with park bandage leg immobilizer (S/P left leg surgery on 01/09/19). Portable wound drainage system in place connected to surgical wound. Patient lying on Bariatric bed. Non-weight bearing to left leg. Call mccormick within reach.
--- NOTE | 2019-01-10 19:10 | NUR ---
Walking rounds performed. All questions answered. Hand-off to night filler. Patient is resting in bed with no signs of distress.
[2019-01-10 19:56] VITALS: BP 124/77
[2019-01-10] MEDS: ZINC OXIDE / BALSAM PERU 30 GM TUBE TOP SCH (21:00)
[2019-01-10] MEDS: GABAPENTIN 300 MG CAP PO SCH (21:48)
[2019-01-10] MEDS: SIMVASTATIN 40 MG TAB PO SCH (21:48)
[2019-01-11 00:19] VITALS: BP 134/73
[2019-01-11] MEDS: MORPHINE SULFATE INJ 4 MG/ML INJ 1ML IV PRN ×2 (05:15→12:52)
[2019-01-11 05:19] LABS: HEMATOCRIT 30.1 % (34.2-44.1); HEMOGLOBIN 9.6 g/dL (12.0-16.0)
[2019-01-11 05:33] VITALS: BP 116/70
[2019-01-11] MEDS: FAMOTIDINE 20 MG TAB PO SCH ×2 (06:31→16:52)
[2019-01-11] MEDS: LEVOTHYROXINE SODIUM 100 MCG TAB PO SCH (06:31)
[2019-01-11] MEDS: LIOTHYRONINE SODIUM 5 MCG TAB PO SCH (06:31)
[2019-01-11] MEDS: INSULIN REGULAR, HUMAN 100 UNIT/1 ML 3ML VIAL SQ SCH ×3 (07:30→16:53)
--- NOTE | 2019-01-11 07:38 | Progress Note ---
DATE: SUBJECTIVE: The patient is status post open reduction and internal fixation. The patient has had left bicondylar tibial plateau fracture. Currently complains of some pain. Pain controlled when pain medications given. Shortness of breath is better. The patient is using incentive spirometry and the patient is in transition to inpatient rehab at [facility] if accepted. OBJECTIVE: VITAL SIGNS: Temperature is 96.9, pulse of 106, respirations of 19, blood pressure is 116/70, pulse oximetry of 90%. HEENT: Normocephalic, atraumatic. GENERAL: Morbidly obese. CVS: S1, S2 distant. Regular rate and rhythm. LUNGS: Decreased air entry. ABDOMEN: Nontender, nondistended. EXTREMITIES: Left lower extremity in bandage. Wound is dry and clean. LABORATORY VALUES: Hemoglobin and hematocrit are 9.6 and 30.1. MEDICATIONS: The patient's medications reviewed. ASSESSMENT: 1. Left bicondylar tibial plateau fracture, status post open reduction and internal fixation. 2. Hypertension. 3. Diabetes mellitus. 4. Hypoxia with sleep apnea. 5. Morbid obesity. 6. Uncontrolled diabetes mellitus. PLAN: Continue with incentive spirometry. Continue with insulin sliding scale. Continue with regular medicines and CV medication. DISPOSITION: Discharged to [facility] or inpatient rehab when accepted. MD ZAY Bennett/MODL /[id number]
[2019-01-11 08:06] VITALS: BP 103/55
[2019-01-11] MEDS: HYDROCODONE/APAP 7.5MG-325MG 1 EA TAB PO PRN ×2 (08:14→14:39)
[2019-01-11 08:17] VITALS: BP 103/55
[2019-01-11] MEDS: CELECOXIB 100 MG CAP PO SCH ×2 (08:17→16:52)
[2019-01-11] MEDS: CITALOPRAM HYDROBROMIDE 20 MG TAB PO SCH (08:17)
[2019-01-11] MEDS: PIOGLITAZONE HCL 15 MG TAB PO SCH (08:17)
[2019-01-11] MEDS: INSULIN GLARGINE 100 UNITS/ML VIAL SQ SCH (08:19)
[2019-01-11] MEDS: LISINOPRIL 20 MG TAB PO SCH (08:19)
--- NOTE | 2019-01-11 09:24 | NUR ---
PATIENT REFUSED [facility] FACILITY AT THIS TIME. PATIENT WANTS TO PURSUE INPATIENT REHAB DUE TO HER BEING INDEPENDENT PRIOR TO ADMISSION, HER YOUNG AGE, AND WILLINGNESS TO HAVE AGGRESSIVE THERAPY TO RETURN TO BASELINE AMBULATION.
[2019-01-11] MEDS: ZINC OXIDE / BALSAM PERU 30 GM TUBE TOP SCH (10:32)
[2019-01-11 11:14] VITALS: BP 119/77
--- NOTE | 2019-01-11 13:36 | NUR ---
DISCHARGE DISPOSITION: PATIENT ACCEPTED AND TRANSFERRING TO INPATIENT REHABILITATION FACILITY: [facility] Address: [address] [place] [address], [place] [address] FAX: [phone] ACCEPTING MD: DR. YUSUF LARA ACCEPTING ADMIN: CHRISTY TOBAR CALL REPORT: [phone] ROOM# GIVEN DURING REPORT. LOLIS FENG TO PUT IN NOTES ONCE RECEIVED.
--- NOTE | 2019-01-11 13:46 | NUR ---
Called Dr. Onofre to get discharge orders at this time. Left a message. Waiting for return call.
[2019-01-11 15:40] VITALS: BP 144/89
[2019-01-12] MEDS ORDERED: ASPIRIN 325 MG TAB EC PO SCH (09:00)
== END 2019-01-11 17:35 | DRG 492 ==
LOC: ER 09:15 → ERHOLD 13:46 → MED/SURG2 15:22
PROVIDERS: ADMIT Family Medicine; ATTEND Family Medicine
PROC: 0QSH04Z Reposition Left Tibia with Internal Fixation Device, Open Approach (ICD-10-PCS; principal; 2019-01-09 12:00)
DX: S82.142A Displaced bicondylar fracture of left tibia, initial encounter for closed fracture (principal); I50.21 Acute systolic (congestive) heart failure; Z68.43 Body mass index [BMI] 50.0-59.9, adult; E11.65 Type 2 diabetes mellitus with hyperglycemia; E66.01 Morbid (severe) obesity due to excess calories; I10 Essential (primary) hypertension; E03.9 Hypothyroidism, unspecified; W01.0XXA Fall on same level from slipping, tripping and stumbling without subsequent striking against object, initial encounter; G47.33 Obstructive sleep apnea (adult) (pediatric); I11.0 Hypertensive heart disease with heart failure
CPT/HCPCS: 36415; 80048; 80053; 80061; 82948; 83036; 84436; 84443; 84479; 85014; 85018; 85025; 85610; 93005; 93306; 97139; 99284; J0171; J0690; J1100; J1650; J1815; J1885; J2001; J2250; J2270; J2370; J2405; J2550; J2765; J2795; J7030; J7050

== ENCOUNTER → 2019-03-14 | Outpatient (RCR) | payer OTHER ==
[~2019-03-14] MED LIST: CITALOPRAM HBR20 MG PO; FLUCONAZOLE100 MG PO; GABAPENTIN300 MG PO; LANTUS 3ML100 UNITS/; LEVOTHYROXINE200 MCG PO; LIDOCAINE VISC 2% SOLN 15 ML UDC ONE; LIDOCAINE/PRILOCAINE 2.5-2.5% KIT ONE; LIOTHYRONINE SO5 MCG PO; LISINOPRIL10 MG PO; LOVASTATIN40 MG; MUPIROCIN 2% OINT 22 GM TUBE ONE; PIOGLITAZONE HC45 MG PO; VENTOLIN HFA18 GM
== END ==
LOC: WCC 02-14 09:19
PROVIDERS: ATTEND Family Medicine
DX: T81.89XA Other complications of procedures, not elsewhere classified, initial encounter (principal); T81.30XA Disruption of wound, unspecified, initial encounter; E11.65 Type 2 diabetes mellitus with hyperglycemia; I10 Essential (primary) hypertension; E78.49 Other hyperlipidemia; E03.8 Other specified hypothyroidism; E66.01 Morbid (severe) obesity due to excess calories; W18.49XA Other slipping, tripping and stumbling without falling, initial encounter
CPT/HCPCS: 87071; 87075; 87186; 87205

== ENCOUNTER → 2019-04-09 | Outpatient (CLI) | payer OTHER ==
[~2019-04-09] MED LIST changes: -LIDOCAINE VISC 2% SOLN 15 ML UDC ONE; -LIDOCAINE/PRILOCAINE 2.5-2.5% KIT ONE; -MUPIROCIN 2% OINT 22 GM TUBE ONE
--- NOTE | 2019-04-09 12:14 | Diagnostic Imaging Report ---
Exam: Chest one view Clinical history: PICC insertion Findings: A right arm PICC is noted with its tip overlying the cavoatrial junction. The cardiac size is mildly enlarged. Increased right basilar pulmonary opacities noted which may represent atelectasis. There is mild blunting of bilateral costophrenic sulci which may represent pleural thickening versus small effusions. There is no evidence of pneumothorax. The regional osseous structures are unremarkable. Signed by: Dr. Keith Liriano MD on 04/09/2019 12:11 PM
== END ==
LOC: DX 10:10
PROVIDERS: ATTEND Internal Medicine Infectious Disease
DX: Z79.2 Long term (current) use of antibiotics (principal); B95.8 Unspecified staphylococcus as the cause of diseases classified elsewhere; B96.89 Other specified bacterial agents as the cause of diseases classified elsewhere
CPT/HCPCS: 36569; 71045

== ENCOUNTER 2019-04-11 13:19 | Outpatient (RCR) | payer OTHER ==
[2019-03-30 11:02] LABS: ANION GAP 16.1 mmol/L (8-16); CALCIUM 9.6 mg/dL (8.4-10.2); CREATININE, SERUM 0.97 mg/dL (0.57-1.11); POTASSIUM 4.1 mmol/L (3.5-5.1)
[2019-03-30 11:09] LABS: BASOPHILS # (AUTO) 0.1 (0.0-0.1); BASOPHILS % 0.5 % (0.0-1.0); EOSINOPHILS # (AUTO) 0.2 (0.0-0.4); EOSINOPHILS % 1.8 % (0.0-6.0); HEMATOCRIT 33.1 % (34.2-44.1); HEMOGLOBIN 10.1 g/dL (12.0-16.0); LYMPHOCYTES # (AUTO) 2.4 (1.0-3.2); LYMPHOCYTES % 24.3 % (18.0-39.1); MEAN CORPUSCULAR HEMOGLOBIN 25.9 pg (28-32); MEAN CORPUSCULAR HGB CONC 30.5 g/dL (31-35); MEAN CORPUSCULAR VOLUME 84.9 fL (81-99); MONOCYTES # (AUTO) 0.8 (0.2-0.8); MONOCYTES % 7.8 % (4.4-11.3); NEUTROPHILS # (AUTO) 6.6 (2.1-6.9); NEUTROPHILS % 65.3 % (38.7-80.0); PLATELET COUNT 374 x10e3/uL (140-360)
[~2019-04-11 13:19] MED LIST changes: +LIDOCAINE VISC 2% SOLN 15 ML UDC ONE; +LIDOCAINE/PRILOCAINE 2.5-2.5% KIT ONE
[2019-04-11] MEDS ORDERED: LIDOCAINE VISC 2% SOLN 15 ML UDC ONE (19:06)
== END 2019-04-14 ==
LOC: WCC 13:19
PROVIDERS: ATTEND Family Medicine
DX: T81.30XA Disruption of wound, unspecified, initial encounter (principal); T81.89XA Other complications of procedures, not elsewhere classified, initial encounter; E11.65 Type 2 diabetes mellitus with hyperglycemia; R60.0 Localized edema; I10 Essential (primary) hypertension; E78.49 Other hyperlipidemia; E03.8 Other specified hypothyroidism; B96.89 Other specified bacterial agents as the cause of diseases classified elsewhere; W18.49XA Other slipping, tripping and stumbling without falling, initial encounter; E66.01 Morbid (severe) obesity due to excess calories
CPT/HCPCS: 36415; 80048; 82550; 82948; 83036; 85025; 87071; 87075; 87186; 87205

== ENCOUNTER 2019-04-28 11:27 | Emergency (ER) | payer SELFPAY ==
[~2019-04-28] VITALS: Ht 162.6 cm; Wt 148.3 kg
[~2019-04-28 11:27] MED LIST changes: -LIDOCAINE VISC 2% SOLN 15 ML UDC ONE; -LIDOCAINE/PRILOCAINE 2.5-2.5% KIT ONE
--- NOTE | 2019-04-28 12:38 | NUR ---
PICC LINE NURSE CALLED
--- NOTE | 2019-04-28 13:00 | NUR ---
LAB AT BEDSIDE DRAWING BLOOD WORK
[2019-04-28 13:20] LABS: BASOPHILS # (AUTO) 0.1 (0.0-0.1); BASOPHILS % 0.7 % (0.0-1.0); EOSINOPHILS # (AUTO) 0.1 (0.0-0.4); EOSINOPHILS % 1.4 % (0.0-6.0); HEMATOCRIT 39.8 % (34.2-44.1); HEMOGLOBIN 12.1 g/dL (12.0-16.0); LYMPHOCYTES # (AUTO) 2.4 (1.0-3.2); LYMPHOCYTES % 31.4 % (18.0-39.1); MEAN CORPUSCULAR HEMOGLOBIN 25.8 pg (28-32); MEAN CORPUSCULAR HGB CONC 30.4 g/dL (31-35); MEAN CORPUSCULAR VOLUME 84.9 fL (81-99); MONOCYTES # (AUTO) 0.6 (0.2-0.8); MONOCYTES % 7.3 % (4.4-11.3); NEUTROPHILS # (AUTO) 4.5 (2.1-6.9); NEUTROPHILS % 58.9 % (38.7-80.0); PLATELET COUNT 392 x10e3/uL (140-360); RED BLOOD COUNT 4.69 x10e6/uL (3.6-5.1); RED CELL DISTRIBUTION WIDTH 16.7 % (11.7-14.4)
[2019-04-28 13:37] LABS: ANION GAP 17.7 mmol/L (8-16); BLOOD UREA NITROGEN 13 mg/dL (7-26); BUN/CREATININE RATIO 15 (6-25); CALCIUM 10.3 mg/dL (8.4-10.2); CARBON DIOXIDE 24 mmol/L (22-29); CHLORIDE 101 mmol/L (98-107); CREATININE, SERUM 0.85 mg/dL (0.57-1.11); EST GLOMERULAR FILTRATION RATE > 60 ML/MIN (60-); GLUCOSE 167 mg/dL (74-118); POTASSIUM 4.7 mmol/L (3.5-5.1); SODIUM 138 mmol/L (136-145)
--- NOTE | 2019-04-28 14:33 | NUR ---
PATIENT WANTING TO LEAVE. DR. BOGGS AND SHEILA Ruelas AT BEDSIDE TALKING WITH PATIENT. SHE DECIDED SHE WILL STAY AND GET PICC LINE, THEN GO HOME AND COMPLETE HER SALINE BOLUS AND ANTIBIOTIC.
--- NOTE | 2019-04-28 15:34 | NUR ---
PICC TEAM AT BEDSIDE
--- NOTE | 2019-04-28 16:38 | NUR ---
PATIENT BROUGHT MEAL TRAY
--- NOTE | 2019-04-28 16:44 | NUR ---
PICC line tip is at the cavoatrial junction per radiologist Dr Henriquez. PICC okay to use
--- NOTE | 2019-04-28 16:50 | Diagnostic Imaging Report ---
EXAMINATION: CHEST XRAY LINE PLACEMENT INDICATION: ^PICC LINE PLACEMENT ^Y COMPARISON: Chest radiograph 04/09/2019 FINDINGS: AP view TUBES and LINES: Interval removal of a right PICC. Interval placement of a left PICC with tip overlying the cavoatrial junction. LUNGS: Lungs are well inflated. Stable subsegmental atelectasis in the right lower lobe. No new consolidations. PLEURA: No pleural effusion or pneumothorax. HEART AND MEDIASTINUM: The cardiac silhouette is mildly enlarged but stable. Tortuous thoracic aorta. BONES AND SOFT TISSUES: No acute osseous lesion. Soft tissues are unremarkable. UPPER ABDOMEN: No free air under the diaphragm. IMPRESSION: Interval placement of a left PICC with tip overlying the caval junction. No pneumothorax. Stable subsegmental atelectasis in the right lower lobe. Signed by: Dr. Varsha Erwin M.D. on 04/28/2019 4:47 PM
== END 2019-04-28 17:37 | disposition home or self-care (01) ==
LOC: ER 11:27
DX: T82.528A Displacement of other cardiac and vascular devices and implants, initial encounter (principal); E78.5 Hyperlipidemia, unspecified; Z85.118 Personal history of other malignant neoplasm of bronchus and lung; L03.116 Cellulitis of left lower limb
CPT/HCPCS: 36415; 36569; 36584; 71045; 80048; 85025; 99284

== ENCOUNTER 2019-05-11 11:44 | Outpatient (RCR) | payer OTHER ==
[2019-04-25 10:59] LABS: BASOPHILS # (AUTO) 0.1 (0.0-0.1); BASOPHILS % 0.4 % (0.0-1.0); EOSINOPHILS # (AUTO) 0.3 (0.0-0.4); EOSINOPHILS % 2.8 % (0.0-6.0); HEMATOCRIT 33.7 % (34.2-44.1); HEMOGLOBIN 10.5 g/dL (12.0-16.0); LYMPHOCYTES # (AUTO) 3.3 (1.0-3.2); LYMPHOCYTES % 29.1 % (18.0-39.1); MEAN CORPUSCULAR HEMOGLOBIN 25.7 pg (28-32); MEAN CORPUSCULAR HGB CONC 31.2 g/dL (31-35); MEAN CORPUSCULAR VOLUME 82.6 fL (81-99); MONOCYTES # (AUTO) 0.8 (0.2-0.8); MONOCYTES % 7.2 % (4.4-11.3); NEUTROPHILS # (AUTO) 6.9 (2.1-6.9); NEUTROPHILS % 60.1 % (38.7-80.0); PLATELET COUNT 440 x10e3/uL (140-360); RED BLOOD COUNT 4.08 x10e6/uL (3.6-5.1); RED CELL DISTRIBUTION WIDTH 16.9 % (11.7-14.4)
[2019-04-25 11:16] LABS: CREATININE, SERUM 1.35 mg/dL (0.57-1.11)
[2019-04-27 11:13] LABS: BLOOD UREA NITROGEN 16 mg/dL (7-26); BUN/CREATININE RATIO 17 (6-25); CREATINE KINASE 572 IU/L (29-168); CREATININE, SERUM 0.92 mg/dL (0.57-1.11); EST GLOMERULAR FILTRATION RATE > 60 ML/MIN (60-)
[~2019-05-11 11:44] MED LIST changes: +LIDOCAINE VISC 2% SOLN 15 ML UDC ONE; +MUPIROCIN 2% OINT 22 GM TUBE ONE
== END 2019-05-14 ==
LOC: WCC 11:44
PROVIDERS: ATTEND Family Medicine
DX: T81.30XA Disruption of wound, unspecified, initial encounter (principal); T81.89XA Other complications of procedures, not elsewhere classified, initial encounter; E11.65 Type 2 diabetes mellitus with hyperglycemia; L99 Other disorders of skin and subcutaneous tissue in diseases classified elsewhere; B37.2 Candidiasis of skin and nail; R60.0 Localized edema; I10 Essential (primary) hypertension; E78.49 Other hyperlipidemia; B95.8 Unspecified staphylococcus as the cause of diseases classified elsewhere; B96.89 Other specified bacterial agents as the cause of diseases classified elsewhere; E03.8 Other specified hypothyroidism; E66.01 Morbid (severe) obesity due to excess calories; W18.49XA Other slipping, tripping and stumbling without falling, initial encounter
CPT/HCPCS: 36415; 82550; 82565; 82948; 84520; 85025; 87071; 87075; 87186; 87205

== ENCOUNTER 2019-06-13 10:16 | Outpatient (RCR) | payer OTHER ==
[~2019-06-13 10:16] MED LIST changes: -MUPIROCIN 2% OINT 22 GM TUBE ONE
[2019-06-13] MEDS ORDERED: LIDOCAINE VISC 2% SOLN 15 ML UDC ONE (19:23)
== END 2019-06-14 ==
LOC: WCC 10:16
PROVIDERS: ATTEND Family Medicine
DX: T81.89XA Other complications of procedures, not elsewhere classified, initial encounter (principal); T81.30XA Disruption of wound, unspecified, initial encounter; E11.65 Type 2 diabetes mellitus with hyperglycemia; B37.2 Candidiasis of skin and nail; R60.0 Localized edema; I10 Essential (primary) hypertension; B95.8 Unspecified staphylococcus as the cause of diseases classified elsewhere; L99 Other disorders of skin and subcutaneous tissue in diseases classified elsewhere; B96.89 Other specified bacterial agents as the cause of diseases classified elsewhere; E03.8 Other specified hypothyroidism; E78.49 Other hyperlipidemia; E66.01 Morbid (severe) obesity due to excess calories; W18.49XA Other slipping, tripping and stumbling without falling, initial encounter
CPT/HCPCS: 36415; 82948

== ENCOUNTER 2019-07-11 10:10 | Outpatient (RCR) | payer OTHER ==
[~2019-07-11 10:10] MED LIST changes: +SILVER SULFADIAZINE 50GM CREAM ONE
[2019-07-11] MEDS ORDERED: LIDOCAINE VISC 2% SOLN 15 ML UDC ONE (17:13)
[2019-07-11] MEDS ORDERED: SILVER SULFADIAZINE 50GM CREAM ONE (17:13)
== END 2019-07-14 ==
LOC: WCC 10:10
PROVIDERS: ATTEND Family Medicine
DX: T81.89XA Other complications of procedures, not elsewhere classified, initial encounter (principal); T81.30XA Disruption of wound, unspecified, initial encounter; E11.65 Type 2 diabetes mellitus with hyperglycemia; B37.2 Candidiasis of skin and nail; L99 Other disorders of skin and subcutaneous tissue in diseases classified elsewhere; R60.0 Localized edema; I10 Essential (primary) hypertension; B96.89 Other specified bacterial agents as the cause of diseases classified elsewhere; E66.01 Morbid (severe) obesity due to excess calories; E78.49 Other hyperlipidemia; E03.8 Other specified hypothyroidism; W18.49XA Other slipping, tripping and stumbling without falling, initial encounter

== ENCOUNTER → 2019-07-20 | Outpatient (CLI) | payer OTHER ==
[~2019-07-20] MED LIST changes: -LIDOCAINE VISC 2% SOLN 15 ML UDC ONE; -SILVER SULFADIAZINE 50GM CREAM ONE; +ULTRAM 50MG50 MG PO
[2019-07-20 15:14] LABS: BLOOD UREA NITROGEN 19 mg/dL (7-26); BUN/CREATININE RATIO 20 (6-25); CREATININE, SERUM 0.95 mg/dL (0.57-1.11); EST GLOMERULAR FILTRATION RATE > 60 ML/MIN (60-)
--- NOTE | 2019-07-20 16:39 | Diagnostic Imaging Report ---
Chest, portable AP view History: PICC placement Comparison: 04/28/2019 IMPRESSION: The right upper extremity PICC tip terminates in the distal SVC. The heart is within normal limits of size. Bibasilar atelectasis is present. No pneumothorax. Signed by: Saqib Day MD on 07/20/2019 4:33 PM
== END ==
LOC: DX 14:38
PROVIDERS: ATTEND Internal Medicine Infectious Disease
DX: T81.30XA Disruption of wound, unspecified, initial encounter (principal)
CPT/HCPCS: 36415; 36569; 71045; 82565; 84520

== ENCOUNTER 2019-07-23 09:47 | Inpatient (IN) | payer OTHER ==
[~2019-07-23] VITALS: Ht 157.5 cm; Wt 125.2 kg
[~2019-07-23 09:47] MED LIST changes: -ULTRAM 50MG50 MG PO
--- NOTE | 2019-07-23 10:31 | NUR ---
DR PUENTES HERE TO SEE PT REGARDING WOUND
[2019-07-23] MEDS ORDERED: ONDANSETRON HCL INJ 2MG/ML 2ML 2 MG/ML VIAL IV PRN (10:45)
[2019-07-23] MEDS ORDERED: ERTAPENEM 1GM/NS 100ML 100 ML IV SCH (11:00)
--- NOTE | 2019-07-23 11:28 | Diagnostic Imaging Report ---
Chest, portable AP view History: Left knee osteomyelitis Comparison: 07/20/2019, 04/28/2019 IMPRESSION: The heart is mildly enlarged, stable. Right of the PICC tip terminates at the cavoatrial junction. Bibasilar atelectasis is present. No sizable pleural effusion, focal consolidation, or pneumothorax. Signed by: Saqib Day MD on 07/23/2019 11:25 AM
--- NOTE | 2019-07-23 11:39 | Diagnostic Imaging Report ---
Left knee, 3 views Clinical indication: Posterior left knee Comparison: Left knee radiographs and CT dated 01/04/2019 Findings: 3 portable radiographs of the left knee were obtained. The patient is status post ORIF a comminuted medial and lateral tibial plateau fracture. Plate and screw fixation hardware appears intact without evidence of descending. No acute fracture is identified. Evaluation of the medial articular surface is limited on this examination however there is suggestion of erosion of the distal medial femoral condyle. Further evaluation may be performed with CT. Signed by: Saqib Day MD on 07/23/2019 11:36 AM
[2019-07-23 11:44] LABS: BASOPHILS % 0.4 % (0.0-1.0); EOSINOPHILS # (AUTO) 0.1 (0.0-0.4); EOSINOPHILS % 1.3 % (0.0-6.0); HEMATOCRIT 28.5 % (34.2-44.1); LYMPHOCYTES # (AUTO) 1.8 (1.0-3.2); LYMPHOCYTES % 17.1 % (18.0-39.1); MEAN CORPUSCULAR HEMOGLOBIN 25.8 pg (28-32); MEAN CORPUSCULAR HGB CONC 31.6 g/dL (31-35); MEAN CORPUSCULAR VOLUME 81.7 fL (81-99); MONOCYTES # (AUTO) 0.7 (0.2-0.8); MONOCYTES % 6.6 % (4.4-11.3); NEUTROPHILS # (AUTO) 7.7 (2.1-6.9); NEUTROPHILS % 74.2 % (38.7-80.0); PLATELET COUNT 486 x10e3/uL (140-360); RED BLOOD COUNT 3.49 x10e6/uL (3.6-5.1); RED CELL DISTRIBUTION WIDTH 14.2 % (11.7-14.4)
[2019-07-23 11:56] LABS: CLARITY,URINE CLOUDY (CLEAR); COLOR,URINE YELLOW (YELLOW); LEUKOCYTE ESTERASE ,URINE NEGATIVE (NEGATIVE)
[2019-07-23 11:57] LABS: BILIRUBIN,URINE NEGATIVE (NEGATIVE); KETONES,URINE NEGATIVE (NEGATIVE); NITRITE,URINE NEGATIVE (NEGATIVE); PROTEIN,URINE DIPSTICK 3+ (NEGATIVE); URINE UROBILINOGEN 0.2 mg/dL (0.2 - 1)
[2019-07-23 11:58] LABS: BACTERIA,URINE MODERATE /HPF; EPITHELIAL CELLS,URINE MODERATE /LPF; INR 1.2; PROTHROMBIN TIME 15.8 seconds (11.9-14.5); RBC,URINE 0-5 /HPF (0-5)
[2019-07-23 11:59] LABS: AMORPHOUS SEDIMENT,URINE MANY (FEW); PARTIAL THROMBOPLASTIN TIME 43.4 seconds (23.8-35.5)
[2019-07-23] MEDS ORDERED: DAPTOMYCIN IV SCH (12:00)
[2019-07-23] MEDS ORDERED: SODIUM CHLORIDE 0.9% IV SCH (12:00)
--- NOTE | 2019-07-23 12:00 | NUR ---
RCD PT FROM ER BY BED PT IS ALERT AND ORIENTED VITALS CHECKED PT RESTING ON BED ADMISSION ASSESSMENT AND HISTORY DONE IV PATENT ANTIBIOTICS STARTED WOUNDS ON BOTH LOWER LEG COVERED BY DRESSING INSTRUCTED THE PT REGARDING HOSPITAL POLICY AND ROUTINE BED LOW AND LOCKED CALL LIGHT IN REACH
[2019-07-23 12:05] VITALS: BP 175/86
[2019-07-23 12:07] LABS: ALANINE AMINOTRANSFERASE 19 IU/L (0-55); ALBUMIN 1.9 g/dL (3.5-5.0); ALBUMIN/GLOBULIN RATIO 0.4 (0.8-2.0); ALKALINE PHOSPHATASE 151 IU/L (40-150); ANION GAP 13.6 mmol/L (8-16); BLOOD UREA NITROGEN 16 mg/dL (7-26); BUN/CREATININE RATIO 18 (6-25); CALCIUM 9.4 mg/dL (8.4-10.2); CARBON DIOXIDE 23 mmol/L (22-29); CHLORIDE 98 mmol/L (98-107); CREATINE KINASE 36 IU/L (29-168); CREATININE, SERUM 0.87 mg/dL (0.57-1.11); EST GLOMERULAR FILTRATION RATE > 60 ML/MIN (60-); GLUCOSE 153 mg/dL (74-118); MAGNESIUM 1.7 MG/DL (1.3-2.1); POTASSIUM 3.6 mmol/L (3.5-5.1); SODIUM 131 mmol/L (136-145)
--- NOTE | 2019-07-23 12:34 | NUR ---
PT C/O PAIN ON BOTH LEGS AND ANXIETY PAGED AND NOTIFIED DR DENNIS GOT NEW ORDERS AND ALSO RENEW HOME MEDS ORDER
[2019-07-23] MEDS ORDERED: ALPRAZOLAM 0.5 MG TAB PO PRN (12:45)
[2019-07-23] MEDS: DAPTOMYCIN IV SCH (13:00)
[2019-07-23] MEDS: MEROPENEM 1GM 100 ML IV SCH ×2 (13:00→21:20)
[2019-07-23] MEDS: SODIUM CHLORIDE 0.9% IV SCH (13:00)
[2019-07-23] MEDS ORDERED: SODIUM CHLORIDE 0.9% 250ML 250 ML ONE (13:28)
[2019-07-23] MEDS: CITALOPRAM HYDROBROMIDE 20 MG TAB PO SCH (13:44)
[2019-07-23] MEDS: PIOGLITAZONE HCL 15 MG TAB PO SCH (13:44)
[2019-07-23] MEDS: HYDROMORPHONE 1MG/1ML INJ IV PRN ×2 (13:45→21:29)
[2019-07-23] MEDS: LISINOPRIL 20 MG TAB PO SCH (13:45)
[2019-07-23] MEDS ORDERED: LISINOPRIL 10 MG TAB PO SCH (14:00)
[2019-07-23] MEDS ORDERED: PIOGLITAZONE HCL 45 MG TAB PO SCH (14:00)
--- NOTE | 2019-07-23 14:30 | NUR ---
ASSESSMENT: Spiritual distress Pt overwhelmed concerning illness. Pt states she is "terrified" at the prospect of an amputation. Pt states her children offer little assistance. Pt doesn't want to be "a burden" to her family. Intervention: Provided unhurried pastoral presence and empathic listening. Facilitated identification of emotions and exploration of resources. Provided prayer. Outcome: Will follow as able. AGUSTINA CELESTE Advertising Dispatch Clerks Supervisor Spiritual Care Department O: [phone] Pager: [phone] ([phone] number calling from)
[2019-07-23 14:54] VITALS: BP 125/81
[2019-07-23 15:26] VITALS: BP 115/86
[2019-07-23 16:00] VITALS: BP 140/70
--- NOTE | 2019-07-23 16:01 | NUR ---
ASHLEIGH ARCHIBALD CM FOR [employer] CALLED AND LEFT NAME AND FAX FOR THIS PT [phone] FAX IS [phone]
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
--- NOTE | 2019-07-23 19:00 | NUR ---
PT RESTING ON BED BED SIDE REPORT GIVEN TO ONCOMING NURSE
[2019-07-23] MEDS ORDERED: INFLUENZA VIRUS VAC SPLIT INJ 0.5 ML SYR IM ONE (20:00)
[2019-07-23] MEDS ORDERED: PNEUMOCOCCAL VACCINE POLYVALENT 23 MCG/0.5 ML VIAL IM ONE (20:00)
[2019-07-23 20:57] VITALS: BP 124/74
[2019-07-23 21:00] VITALS: BP 124/74
[2019-07-23] MEDS ORDERED: GABAPENTIN 300 MG CAP PO SCH (21:00)
[2019-07-23] MEDS ORDERED: SIMVASTATIN 40 MG TAB PO SCH (21:00)
[2019-07-24 00:46] VITALS: BP 119/60
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
[2019-07-24] MEDS: MEROPENEM 1GM 100 ML IV SCH ×2 (04:22→12:15)
[2019-07-24] MEDS: HYDROMORPHONE 1MG/1ML INJ IV PRN (04:30)
[2019-07-24 04:50] LABS: BASOPHILS # (AUTO) 0.1 (0.0-0.1); BASOPHILS % 0.4 % (0.0-1.0); EOSINOPHILS # (AUTO) 0.3 (0.0-0.4); EOSINOPHILS % 2.3 % (0.0-6.0); HEMATOCRIT 31.1 % (34.2-44.1); HEMOGLOBIN 9.6 g/dL (12.0-16.0); LYMPHOCYTES # (AUTO) 3.4 (1.0-3.2); LYMPHOCYTES % 27.2 % (18.0-39.1); MEAN CORPUSCULAR HEMOGLOBIN 25.9 pg (28-32); MEAN CORPUSCULAR HGB CONC 30.9 g/dL (31-35); MEAN CORPUSCULAR VOLUME 83.8 fL (81-99); MONOCYTES % 8.2 % (4.4-11.3); NEUTROPHILS # (AUTO) 7.6 (2.1-6.9); NEUTROPHILS % 61.4 % (38.7-80.0); PLATELET COUNT 573 x10e3/uL (140-360); RED BLOOD COUNT 3.71 x10e6/uL (3.6-5.1); RED CELL DISTRIBUTION WIDTH 14.4 % (11.7-14.4)
[2019-07-24 05:10] LABS: ALANINE AMINOTRANSFERASE 16 IU/L (0-55); ALBUMIN 2.1 g/dL (3.5-5.0); ALBUMIN/GLOBULIN RATIO 0.4 (0.8-2.0); ALKALINE PHOSPHATASE 161 IU/L (40-150); ANION GAP 18.3 mmol/L (8-16); BLOOD UREA NITROGEN 14 mg/dL (7-26); BUN/CREATININE RATIO 15 (6-25); CALCIUM 9.5 mg/dL (8.4-10.2); CARBON DIOXIDE 21 mmol/L (22-29); CHLORIDE 100 mmol/L (98-107); CREATININE, SERUM 0.93 mg/dL (0.57-1.11); EST GLOMERULAR FILTRATION RATE > 60 ML/MIN (60-); GLUCOSE 113 mg/dL (74-118); POTASSIUM 4.3 mmol/L (3.5-5.1); SODIUM 135 mmol/L (136-145)
[2019-07-24] MEDS ORDERED: LIOTHYRONINE SODIUM 5 MCG TAB PO SCH (06:00)
[2019-07-24 06:11] VITALS: BP 109/60
--- NOTE | 2019-07-24 06:26 | NUR ---
ok to dc from dr mendiola standpoint. make sure she is cleared from dr marroquin as well. patient already has wound care and home abx set up.
--- NOTE | 2019-07-24 07:51 | NUR ---
Called ortho and left voicemail to see if patient can be cleared for discharge
[2019-07-24 08:02] VITALS: BP 135/68
[2019-07-24] MEDS: PIOGLITAZONE HCL 15 MG TAB PO SCH (08:45)
[2019-07-24] MEDS: LISINOPRIL 20 MG TAB PO SCH (08:45)
[2019-07-24] MEDS: CITALOPRAM HYDROBROMIDE 20 MG TAB PO SCH (08:45)
[2019-07-24] MEDS ORDERED: SIMVASTATIN 20 MG TAB PO SCH (09:00)
[2019-07-24 09:10] VITALS: BP 135/68
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
--- NOTE | 2019-07-24 10:50 | NUR ---
ASSESSMENT: Spiritual distress Pt disappointed. Pt states she didn't want another visit from the grinding wheel inspector. Intervention: Provided information on how to contact grinding wheel inspector if she changed her mind. Outcome: No need to follow at this time. AGUSTINA CELESTE Microfilm Operator Spiritual Care Department O: [phone] Pager: [phone] ([phone] number calling from)
[2019-07-24 12:00] VITALS: BP 132/71
--- NOTE | 2019-07-24 12:40 | NUR ---
Spoke to JUNIOR West regarding IV abx for discharge. States abx set up by wound care clinic. She called and spoke with nurse at wound clinic, who states that order was sent to [facility], contact center representative is [facility] at [phone]. CM placed call to [facility] who states they have orders and pharmacy is on hold, ready to deliver when pt discharges. Asked Cm to send dc order and any updated medication order to [phone]. order and ID progress note faxed. will update [facility] when pt discharges. Addendum: 07/24/19 at 1509 by Yola Thomas Correct fax number [phone]
--- NOTE | 2019-07-24 13:29 | NUR ---
Spoke to case management- confirmed patient is already setup for outpatient antibiotics, wound care, and home health. Patient will be discharging home today
[2019-07-24] MEDS: DAPTOMYCIN IV SCH (13:40)
[2019-07-24] MEDS: SODIUM CHLORIDE 0.9% IV SCH (13:40)
--- NOTE | 2019-07-24 13:46 | NUR ---
WOUND CARE CONSULT 54 YO FEMALE HX OF CHRONIC OSTEOMYELITIS LEFT LOWER EXTREMITY R/T HARDWARE REJECTION AND INFECTION ZENOBIA 18 ON CONSERVATIVE PUP AND INTERVENTIONS LABS: WBC-12.41,HGB-9.6,GLUCOSE-113 BLOOD CULTURE PENDING URINE CULTURE PENDING X-RAY SHOWS EROSION OF DISTAL MEDIAL FEMORAL CONDYLE FURTHER SURGICAL INTERVENTION MY BE NECESSARY REPORTED BY DR IMAN MERCER WATERWAY TRAFFIC CHECKER FOR DR PUENTES ID CONTACTED SECURED ORDER FOR TREATMENT HOLD WOUND VAC NEGATIVE PRESSURE UNTIL SURGICAL DECISIONS MADE BY PATIENT AND MD DRESSING CHANGE PLAN FOR NOW FOLLOWS: CLEAN LEFT LOWER PROXIMAL AND DISTAL WOUNDS AND SINUS TRACTS DAILY WITH NS THEN PACK WITH IODOFORM RUDDY COVER WITH DRAWTEX PAD DOUBLE FOLDED 4X4S AND ABD PAD TO WICK DRAINAGE UPWARD WRAP WITH KERLIX AND SECURE WITH LOOSE COBAN WRAP. PATIENT ALSO INSTRUCTED TO FOLLOW UP WITH DR VALERIO POST DISCHARGE AND IS SET TO SEE DR FERNÁNDEZ ON TUESDAY AND DR PUENTES ON TUESDAY FOR OUTPATIENT WOUND CARE AND ID VISITS SKIN ASSESSMENT COMPLETE PATIENT PRESENTS WITH #1 PROXIMAL LOWER LEFT LEG NONHEALING WOUND MEASURES 4WWL4NO X5.1CM SINUS TRACT AT 11'OCLOCK OF 6CM #2 DISTAL LOWER LEFT LEG NONHEALING WOUND MEASURES 1.5 CM X 1CM X 3CM SINUS TRACT AT 7'OCLOCK OF 8CM AND 2ND SINUS TRACT AT 11'OCLOCK OF 6CM #3 RIGHT FOOT EXTENDING TO 2ND -5TH DIGIT MEASURING 13CM X 9.5CM X0.2CM 80% GRANULATION 20% YELLOW SLOUGH RECOMMENDATIONS: NURSING TO CONTINUE TO MAINTAIN MODERATE PUP STATUS AND INTERVENTIONS NURSING TO CONTINUE TO ASSIST PATIENT OUT OF BED FOR MEALS AND MUCH TOLERATED NURSING TO CLEAN LEFT LOWER PROXIMAL AND DISTAL WOUNDS AND SINUS TRACTS DAILY WITH NS THEN PACK WITH IODOFORM RUDDY COVER WITH DRAWTEX PAD DOUBLE FOLDED 4X4S AND ABD PAD TO WICK DRAINAGE UPWARD WRAP WITH KERLIX AND SECURE WITH LOOSE COBAN WRAP. NURSING INFORM PATIENT TO FOLLOW UP WITH DR VALERIO POST DISCHARGE AND IS SET TO SEE DR FERNÁNDEZ ON TUESDAY AND DR PUENTES ON TUESDAY FOR OUTPATIENT WOUND CARE AND ID VISITS
--- NOTE | 2019-07-24 14:28 | NUR ---
Spoke to patient and she has appointment with wound care clinic on Tue07/25/19
[2019-07-24] MEDS ORDERED: ULTRAM 50MG50 MG PO (14:55)
--- NOTE | 2019-07-24 15:09 | NUR ---
GUILLERMINA spoke to Michelle SARMIENTO with [employer]. Informed her that IV abx order has not changed from orders that were sent from Dr. Donald previously. Pt need to go home on Daptomycin 1gm IV q24 and Invanz 1gm IV q24h x 4 weeks. She asked that clinicals and note with ID's recommendations be sent to [phone]. Clinicals were faxed. She will call Minoo with [email or web address] to authorize abx. GUILLERMINA placed call to Mino[employer] at [phone] and verified that everything is good to go. Pharmacy is ready to deliver medication. GUILLERMINA informed her that pt is discharging today. GUILLERMINA also called [address] at [phone] and spoke with Daniel and verified that pt is currently on service with them. Informed her that pt is discharging today. She stated that they will get in touch with pt and try to schedule to see her tomorrow. If not, they will see her on . Resumption order and clinicals were faxed to [phone]. Pt has follow up appointment at wound clinic on Tuesday and Tuesday.
--- NOTE | 2019-07-24 15:54 | NUR ---
Patient left the floor via wheelchair, her son is here. She is discharged home.
--- NOTE | 2019-07-24 17:03 | Consultation ---
DATE OF CONSULTATION: 07/23/2019 CHIEF COMPLAINT: Osteomyelitis, left knee. HISTORY OF PRESENT ILLNESS: The patient is a 54-year-old lady, who is well known to me. She sustained a complex fracture of her left tibial plateau in December of this year. She was taken to surgery on January 09 for an open reduction and internal fixation of a bicondylar tibial plateau fracture. Prior to the surgery and on multiple occasions since the surgery, I have explained to the patient the high likelihood of complications and challenges due to her medical conditions including obstructive sleep apnea, diabetes, hypertension, hypothyroidism, and a body mass index that was initially over 50. Not surprisingly, she developed an infection in her left knee wound. This is gone on to develop chronic draining sinuses. She has been treated with IV antibiotics. She was recently taken off antibiotics for 2 weeks. She was noted to have an increased draining sinus. For reasons not entirely clear, she was admitted back into the hospital. PAST MEDICAL HISTORY: As above, please see admission H and P for more details. PHYSICAL EXAMINATION: The patient is in her hospital bed. She has a BMI that is nearly 50. Her left knee incision has 2 open draining sinuses. There is no surrounding erythema. She has limited motion and grossly normal stability. LABORATORY STUDIES: Previous x-rays have shown failure of the fixation with evidence of lucencies consistent with osteomyelitis. IMPRESSION: Chronic osteomyelitis, left knee. I have discussed the findings with the patient previously in the clinic. There is no simple solution. At this point, I have recommended removing the hardware and debriding the knee. She will need to have an antibiotic spacer placed in her knee. She will need to be on long-term IV antibiotics. She would not be able to bear weight on this knee. Her comorbidities are going to make this treatment highly challenging. The risk for complications is significant. The complexity of the case is such that I have discussed with her the possibility of seeking treatment in a tertiary care facility [place]. The patient understands that there is no simple solution and is emotional about the potential for losing her leg or other more severe complications. She wishes to think about it. There is nothing emergent. She is not systemically ill. Her white blood cell count is barely elevated. I explained that this would be done semielectively in the next few weeks if she desires. At the same time, I have once again encouraged consideration for a referral downtown to a tertiary level of care. Thank you for the consultation. Gt Hastings MD DR/FIDELIA /[id number]
[2019-07-25] MEDS ORDERED: SILVER SULFADIAZINE 50GM CREAM TOP SCH (09:00)
== END 2019-07-24 15:42 | disposition home health service (06) | DRG 540 ==
LOC: ER 09:47 → ERHOLD 10:40 → MED/SURG2 12:00
PROVIDERS: ADMIT Family Medicine; ATTEND Family Medicine
DX: M86.662 Other chronic osteomyelitis, left tibia and fibula (principal); Z68.43 Body mass index [BMI] 50.0-59.9, adult; T84.623A Infection and inflammatory reaction due to internal fixation device of left tibia, initial encounter; I10 Essential (primary) hypertension; J45.909 Unspecified asthma, uncomplicated; E03.9 Hypothyroidism, unspecified; Z83.3 Family history of diabetes mellitus; Z82.49 Family history of ischemic heart disease and other diseases of the circulatory system; E11.42 Type 2 diabetes mellitus with diabetic polyneuropathy; E66.01 Morbid (severe) obesity due to excess calories; E78.5 Hyperlipidemia, unspecified; B95.61 Methicillin susceptible Staphylococcus aureus infection as the cause of diseases classified elsewhere; G47.33 Obstructive sleep apnea (adult) (pediatric); Z79.4 Long term (current) use of insulin
CPT/HCPCS: 36415; 71045; 80053; 81001; 82550; 82553; 82948; 83605; 83735; 84484; 85025; 85610; 85730; 87040; 87086; 90732; 97139; 99284; J1170; J7050

== ENCOUNTER 2019-10-12 12:19 | Outpatient (RCR) | payer OTHER ==
[~2019-10-12 12:19] MED LIST changes: +ULTRAM 50MG50 MG PO
== END 2019-10-13 ==
LOC: WCC 12:19
PROVIDERS: ATTEND Family Medicine
DX: T81.89XA Other complications of procedures, not elsewhere classified, initial encounter (principal); T81.30XA Disruption of wound, unspecified, initial encounter; Y83.1 Surgical operation with implant of artificial internal device as the cause of abnormal reaction of the patient, or of later complication, without mention of misadventure at the time of the procedure; E11.65 Type 2 diabetes mellitus with hyperglycemia; S91.109A Unspecified open wound of unspecified toe(s) without damage to nail, initial encounter; S81.002A Unspecified open wound, left knee, initial encounter; S90.424A Blister (nonthermal), right lesser toe(s), initial encounter; S90.821A Blister (nonthermal), right foot, initial encounter; R60.0 Localized edema; B37.2 Candidiasis of skin and nail; I10 Essential (primary) hypertension; E03.8 Other specified hypothyroidism; E78.49 Other hyperlipidemia; E66.01 Morbid (severe) obesity due to excess calories; W18.49XA Other slipping, tripping and stumbling without falling, initial encounter; T25.221A Burn of second degree of right foot, initial encounter
CPT/HCPCS: 36415; 82948

== ENCOUNTER 2019-10-17 09:17 | Outpatient (RCR) | payer OTHER | END 2019-11-13 | LOC: WCC 09:17 | PROVIDERS: ATTEND Internal Medicine Infectious Disease | DX: T81.89XA Other complications of procedures, not elsewhere classified, initial encounter (principal); Y83.1 Surgical operation with implant of artificial internal device as the cause of abnormal reaction of the patient, or of later complication, without mention of misadventure at the time of the procedure; E11.65 Type 2 diabetes mellitus with hyperglycemia; S81.002A Unspecified open wound, left knee, initial encounter; B37.2 Candidiasis of skin and nail; R60.0 Localized edema; S90.821A Blister (nonthermal), right foot, initial encounter; T25.221A Burn of second degree of right foot, initial encounter; W18.49XA Other slipping, tripping and stumbling without falling, initial encounter; I10 Essential (primary) hypertension; E78.49 Other hyperlipidemia; E03.8 Other specified hypothyroidism; E66.01 Morbid (severe) obesity due to excess calories ==

== ENCOUNTER 2019-11-16 10:33 | Outpatient (RCR) | payer OTHER | END 2019-12-13 | LOC: WCC 10:33 | PROVIDERS: ATTEND Family Medicine | DX: T81.89XA Other complications of procedures, not elsewhere classified, initial encounter (principal); T81.30XA Disruption of wound, unspecified, initial encounter; Y83.1 Surgical operation with implant of artificial internal device as the cause of abnormal reaction of the patient, or of later complication, without mention of misadventure at the time of the procedure; E11.65 Type 2 diabetes mellitus with hyperglycemia; B37.2 Candidiasis of skin and nail; S81.002A Unspecified open wound, left knee, initial encounter; W18.49XA Other slipping, tripping and stumbling without falling, initial encounter; R60.0 Localized edema; S90.821A Blister (nonthermal), right foot, initial encounter; I10 Essential (primary) hypertension; E78.49 Other hyperlipidemia; E03.8 Other specified hypothyroidism; E66.01 Morbid (severe) obesity due to excess calories | CPT/HCPCS: 36415; 82948 ==